=== PATIENT | male | born 1960 | race Caucasian/White ===

== ENCOUNTER 2023-12-09 12:02 | Outpatient (CLI) | payer MEDICARE, OTHER, SELFPAY ==
--- NOTE | ~2023-12-09 | XR_ITS ---
EXAMINATION: XR abdomen/kub 1V DATE: 12/09/2023 12:26 INDICATION: Calcium kidney stone TECHNIQUE: A supine view of the abdomen on 2 radiographs was obtained. COMPARISON: None. FINDINGS: 6 mm stone at the lower pole of the left kidney. No other evident urolithiasis although evaluation fo r tiny stones is limited and the right kidney by superimposed stool and gas in the colon. Iliac arter ies atherosclerotic calcifications in the pelvis. Mild lumbar levocurvature with moderate spondylosis . Multiple surgical clips in the deep pelvis which may relate to prior prostatectomy. Partially visua lized left total hip arthroplasty. IMPRESSION: 1. 6 mm stone at the lower pole the left kidney. Reviewed, dictated and finalized at location A.
== END 2023-12-09 12:03 | disposition home or self-care (01) ==
PROVIDERS: PCP Student in an Organized Health Care Education/Training Program; Visit Provider Urology
DX: N20.0 Calculus of kidney (principal)
CPT/HCPCS: 74018

== ENCOUNTER 2025-01-02 11:38 | Emergency (ER) | payer MEDICARE, OTHER, SELFPAY ==
--- NOTE | ~2025-01-02 | XR_ITS ---
XR abdomen/kub 1V Ordering provider: Beatriz Lyles PA-C History: . large prox L stone . Comparison: December 09, 2023 FINDINGS: BOWEL: Nonobstructive bowel gas pattern. ORGANOMEGALY: None. SIGNIFICANT PATHOLOGIC CALCIFICATIONS: A stone is seen in the left upper ureter measuring 1.8 cm. No other definite stones seen. OTHER: No free air is seen under the diaphragm. Left hip arthroplasty. IMPRESSION: NO ACUTE ABDOMINAL FINDINGS. Stone in the left upper ureter. Reviewed, dictated and finalized at location A.
--- NOTE | ~2025-01-02 | CT_ITS ---
Non-contrast CT scan of the Abdomen and Pelvis Clinical indication: Left flank pain Technique: 2.5 mm axial scans were obtained through the abdomen and pelvis without intravenous or or al contrast. Dose reduction technique was used on this scan by utilizing automated exposure control a nd iterative reconstruction technique. The dose-length product (DLP) was 1632.05 mGy-cm. Findings: Images through the lung bases reveal 1.5 cm noncalcified left basilar pulmonary nodule. There is a 13 mm ovoid stone at the proximal left ureter with moderate left hydroureteronephrosis to this level. Left renal cyst present. No right renal or right ureteral stone. No right hydronephrosis. The liver, spleen, pancreas, gallbladder, and adrenals appear normal. There are atherosclerotic calci fications of the aorta. . There is no evidence of bowel obstruction. Images through the pelvis were performed. There is no evidence of ascites or lymphadenopathy. Urinary bladder unremarkable. No pelvic mass evident. Impression: 13 mm proximal left ureteral stone with moderate left hydronephrosis. 1.5 cm noncalcified left basilar pulmonary nodule. Neoplasm is a consideration. Tissue sampling and/o r PET CT advised for further evaluation. Follow-up CT in 1-3 months would be a potential alternative consideration for follow-up. Reviewed, dictated and finalized at [facility]. Impression: 13 mm proximal left ureteral stone with moderate left hydronephrosis. 1.5 cm noncalcified left basilar pulmonary nodule. Neoplasm is a consideration. Tissue sampling and/or PET CT advised for further evaluation. Follow-up CT in 1-3 months would be a potential alternative consideration for follow-up.
[2025-01-02 11:48] VITALS: BP 153/86; PULSE 63; RESP 18; TEMP 36.4; O2SAT 97
--- NOTE | 2025-01-02 12:15 | ED_ITS ---
HPI - Male Genitourinary General Chief complaint: Urogenital-Male Stated complaint: 'I think I have a kidney stone Time Seen by Provider: 01/02/25 11:53 Source: patient Mode of arrival: ambulatory Limitations: no limitations History of Present Illness HPI Narrative: Patient is a 64 y/o male, with PMH of kidney stones, who presents to the ED with c/o L flank pain, radiating into his L abdomen. Patient reports pain began this morning. Does radiate into his groin. Feels similar to previous kidney stones. Has seen Dr. Samayoa in the past. Denies difficulty urinating, dysuria, hematuria. Does report slight decreased urination today. Reports nausea. Denies vomiting, fevers, diarrhea, constipation. Patient is 4 weeks out from right rotator cuff repair. Related Data Allergies Allergy/AdvReac Type Severity Reaction Status Date / Time Penicillins Allergy Intermediate Unknown Verified 01/02/25 11:51 Review of Systems 2 Review of Systems: All systems reviewed & are unremarkable except as noted in HPI. All systems reviewed & are unremarkable except as noted in HPI and below Exam 2 Narrative: GENERAL: Mildly uncomfortable appearing, morbidly obese with BMI of 40.3, non- toxic, in no acute distress. HEAD: Normocephalic, atraumatic. RESPIRATORY: Airway patent, respirations nonlabored. Clear to auscultation bilaterally, no rales, rhonchi, wheezing. CARDIOVASCULAR: Regular rate and rhythm without murmurs, rubs, or gallops. ABDOMINAL: Soft, no significant reproducible tenderness in left lower abdomen, nondistended. Normoactive BS. Mild CVA tenderness on left. MUSCULOSKELETAL: Moves all extremities. No gross deformities. SKIN: Warm, dry, normal color. NEURO: A&O X3. Speech clear. PSYCHIATRIC: Appropriate mood and affect. Normal interaction. Course Vital Signs Vital signs: Vital Signs Temperature 97.6 F 01/02/25 11:48 Pulse Rate 63 01/02/25 11:48 Respiratory Rate 18 01/02/25 11:48 Blood Pressure 153/86 H 01/02/25 11:48 Pulse Oximetry 97 01/02/25 11:48 Oxygen Delivery Room Air 01/02/25 11:48 Temperature 97.6 F 01/02/25 11:48 Pulse Rate 63 01/02/25 11:48 Respiratory Rate 18 01/02/25 11:48 Blood Pressure 153/86 H 01/02/25 11:48 Pulse Oximetry 97 01/02/25 11:48 Oxygen Delivery Room Air 01/02/25 11:48 MDM - Male Genitourinary MDM Narrative Medical decision making narrative: Patient presented to ED with left flank and abdominal pain that began this morning, history of kidney stones. Vital signs stable upon arrival. Patient in no acute distress, but mildly uncomfortable appearing. Cbc without leukocytosis or anemia. BMP with stable kidney function. UA with trace ketones, 21-50 RBC, no signs of infection. CT scan of abdomen/pelvis was obtained and showing 13 mm proximal left ureteral stone with moderate hydronephrosis. KUB ordered. CT also showing incidental pulmonary nodule that will require further imaging as an outpatient. Will make patient aware of this. Discussed lab and imaging findings with patient. On re-evaluation, he is feeling improved after dose of morphine. Pain is much more tolerable at this time. Discussed case with Dr. Dunn, urology, agrees with plan for outpatient follow-up, pain control, Flomax. They will contact patient to make follow-up appointment. Patient is in agreement this plan. Discussed very strict return precautions. Patient voiced understanding. Patient discharged in stable condition. Medical Records Attestation: I reviewed the patient's medical records. Lab Data Attestation: I reviewed the patient's lab results. 01/02/25 12:23 01/02/25 12:23 Labs: Lab Results 01/02/25 Range/Units 12:23 WBC 8.5 (4.5-10.0) K/mm3 RBC 5.07 (4.6-6.20) M/mm3 Hgb 15.9 (14.0-18.0) g/dL Hct 47.6 (42.0-52.0) % MCV 93.9 (80-100) fl MCH 31.4 (26-34) pg MCHC 33.4 (32-36) g/dl RDW 13.2 (11.5-14.5) % Plt Count 216 (150-375) k/mm3 MPV 9.5 (7.4-10.4) fl Immature Gran % (Auto) 0.5 (0-0.5) % Neut % (Auto) 71.1 (45.5-73.1) % Lymph % (Auto) 17.9 L (18.3-44.2) % Swisher % (Auto) 6.8 (2.6-8.5) % Eos % (Auto) 2.9 (0-4.4) % Baso % (Auto) 0.8 (0.2-1.2) % Lymph # (Auto) 1.52 (0.9-3.2) K/mm3 Swisher # (Auto) 0.6 (0.1-0.6) K/mm3 Eos # (Auto) 0.3 (0-0.3) K/mm3 Baso # (Auto) 0.1 (0.0-0.1) K/mm3 Abs Immat Gran (auto) 0.04 H (0.00-0.031) K/mm3 Absolute Neuts (auto) 6.0 (1.3-6.7) K/mm3 Absolute Nucleated RBC 0.000 (0.0-0.012) K/mm3 Nucleated RBC % 0.0 (0.0-0.2) % Sodium 139 (137-145) mmol/L Potassium 3.8 (3.4-5.0) mmol/L Chloride 105 (98-107) mmol/L Carbon Dioxide 25 (22-30) mmol/L Anion Gap 9 (4-12) mmol/L BUN 21 H (9-20) mg/dL Creatinine 1.01 (0.7-1.3) mg/dL Estim Creat Clear Calc 94 ml/min Estimated GFR > 60 (59 - ) Glucose 147 H (65-110) mg/dL Calcium 9.3 (8.4-10.2) mg/dL Urine Color Dark yellow (Yellow) Urine Appearance Cloudy H (Clear) Urine pH 5.0 (5.0-9.0) Ur Specific [place] 1.026 (1.001-1.035) Urine Protein 1+ H (Negative) mg/dL Urine Glucose (UA) Negative (Negative) mg/dL Urine Ketones Trace H (Negative) mg/dL Ur Blood (Man) 3+ H (Negative) Urine Nitrate Negative (Negative) Urine Bilirubin Negative (Negative) Urine Urobilinogen 1.0 (<2.0) mg/dL Leukocyte Esterase Rfl Trace H (Negative) KARINA/UL Urine RBC 21-50 H (0-2) /hpf Urine WBC 0-5 (0-3) /hpf Ur Squamous Epith Cells None seen (Few) /hpf Urine Bacteria None seen /hpf Urine Casts 0-2 Imaging Data Attestation: I personally reviewed and interpreted this imaging study as follows: Radiologist's impression: ITS Impressions Abdomen/Pelvis CT 01/02/25 13:20 Impression: 13 mm proximal left ureteral stone with moderate left hydronephrosis. 1.5 cm noncalcified left basilar pulmonary nodule. Neoplasm is a consideration. Tissue sampling and/or PET CT advised for further evaluation. Follow-up CT in 1- 3 months would be a potential alternative consideration for follow-up. Discharge Plan Discharge Clinical Impression: Calculus of proximal left ureter, Incidental pulmonary nodule Hydronephrosis Qualifiers: Hydronephrosis type: unspecified Qualified Code(s): N13.30 - Unspecified hydronephrosis Patient Disposition: Home Condition: Stable Instructions: Antibiotic Form, Kidney Stones (ED), Flank Pain (ED) Additional Instructions: Take Flomax daily as prescribed. Continue Tylenol as needed for pain. Avoid anti-inflammatories in case you need a urologic procedure (aleve, naproxen, ibuprofen, Advil, Motrin Mcleod). Utilize Oxycodone as needed for more severe pain. Zofran for nausea. Stay well hydrated. Call urology tomorrow to make an appointment if you do not hear from them today or tomorrow morning. Return to the ED if you experience worsening or severe pain, unable to keep down food/drink, fevers, uncontrollable nausea/vomiting, unable to urinate, or any other symptoms of concern. Your imaging did show evidence of an incidental left-sided pulmonary nodule. You will need to follow-up with your primary care doctor for further imaging of this in the next few months. Patient Language: Stateless Prescriptions: New ondansetron 4 mg tablet,disintegrating 4 mg PO Q8H PRN (Reason: nausea and vomiting) Qty: 15 0RF oxycodone 5 mg tablet 5 mg PO Q6H PRN (Reason: pain) Qty: 15 0RF tamsulosin [Flomax] 0.4 mg capsule 0.4 mg PO DAILY Qty: 7 0RF Follow-up/Referrals: Watson Dunn MD [Physician] - (UROLOGY) Reji,DO Tommy [Primary Care Provider] - Time of Disposition: 14:43
[2025-01-02 12:30] LABS: Basophils Absolute Auto 0.1 K/mm3 (0.0-0.1); Basophils Percent Auto 0.8 % (0.2-1.2); Eosinophils Absolute Auto 0.3 K/mm3 (0-0.3); Eosinophils Percent Auto 2.9 % (0-4.4); Hematocrit 47.6 % (42.0-52.0); Hemoglobin 15.9 g/dL (14.0-18.0); Immature Granulocyte Absolute 0.04 K/mm3 (0.00-0.031); Immature Granulocyte Percent A 0.5 % (0-0.5); Lymphocytes Absolute Auto 1.52 K/mm3 (0.9-3.2); Lymphocytes Percent Auto 17.9 % (18.3-44.2); Mean Corpuscular HGB Conc 33.4 g/dl (32-36); Mean Corpuscular Hemoglobin 31.4 pg (26-34); Mean Corpuscular Volume 93.9 fl (80-100); Mean Platelet Volume 9.5 fl (7.4-10.4); Monocytes Absolute Auto 0.6 K/mm3 (0.1-0.6); Monocytes Percent Auto 6.8 % (2.6-8.5); Neutrophils Percent Auto 71.1 % (45.5-73.1); Platelet Count Result 216 k/mm3 (150-375); Red Blood Count 5.07 M/mm3 (4.6-6.20); Red Cell Distribution Width 13.2 % (11.5-14.5); White Blood Count 8.5 K/mm3 (4.5-10.0)
[2025-01-02] MEDS: MORPHINE SULFATE (*CRX) 4 MG/ML INJ IV PUSH (12:38)
[2025-01-02] MEDS: ONDANSETRON INJ 4 MG/2 ML VIAL IV PUSH (12:38)
[2025-01-02 12:39] LABS: Add Urine Microscopic? YES; Appearance Urine Cloudy (Clear); Bacteria Urine None Seen /hpf; Bilirubin Urine Negative (Negative); Blood Urine 3+ (Negative); Color Urine Dark Yellow (Yellow); Glucose Urine UA Negative (Negative); Ketones Urine Trace mg/dL (Negative); Leukocyte Esterase Ur Trace LEU/UL (Negative); Nitrate Urine Negative (Negative); Non Pathogenic Casts 0-2; Protein Urine 1+ mg/dL (Negative); RBC Urine 21-50 /hpf (0-2); Specific Grav Ur 1.026 (1.001-1.035); Squamous Epithelial Cell Urine None Seen /hpf (Few); WBC Urine 0-5 /hpf (0-3)
[2025-01-02 12:40] LABS: Blood Urea Nitrogen 21 mg/dL (9-20); Calcium 9.3 mg/dL (8.4-10.2); Carbon Dioxide 25 mmol/L (22-30); Chloride 105 mmol/L (98-107); Estimated CRCL calculation 94 ml/min; Estimated Glomerular Filt Rate > 60; Glucose 147 mg/dL (65-110); Potassium 3.8 mmol/L (3.4-5.0)
--- OUTSIDE RECORDS SUMMARY | 2025-01-02 12:52 | XMS_ITS | Encounter Summary ---
Author Organization [facility] Address [address] [place] [address] Care Team Providers Care Online Advertising Director Name Role Phone Pcp, Unknown Primary Care Provider Unavailabl Gabbi Barbour MD Unavailable [phone] Tommy Mendoza DO Primary Care Provider + Encounter Details Date Type Department Care Team (Late st Contact Info) Description 11/12/2010 [facility] Outpatient Visit [facility]TER[facility] DEPT Amor Shaffer MD [address] [place] [phone] Social History Tobacco Use Types Packs/Day Years Used Date Smoking Tobacco: Former Cigarettes Q uit: 09/25/2008 Cigars Smokeless Tobacco: Never Alcohol Use Standard Drinks/Week Comments Yes 1.7 (1 standard drink = 0.6 oz p ure alcohol) rarely Sex and Gender Information Value Date Recorded Sex Assigned at Not on file Legal Sex Male 9:59 AM [employer] Gender Identity Not on file Sexual Orientation Not on file 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 on file Not on file documented as of this encounter Plan of Treatment Upcoming Encounters Date Type Department Care Team (Late Contact Info) Description 01/18/2025 9:45 AM CDT Office Visit [facility] [address] [facility], [address] [place] [phone] Shirley Wisdom PAWolf [address] [facility] [address] [place], [place] [id number] documented as of this encounter Visit Diagnoses Not on filedocumented in this encounter Care Teams Online Advertising Director Relationship Specialty Start Date End Date Pcp, Unknown [place] [address] PCP - General 07/05/09 Tommy Mendoza DO [address] [place] [phone] PCP - General 09/22/19 [place] [id number] [facility] [address] [place] [address] Orthopedic Surgery 07/05/14 documented as of this encounter
--- OUTSIDE RECORDS SUMMARY | 2025-01-02 12:52 | XMS_ITS | Clinical Summary ---
Author Organization [facility] Address [address] [facility] [place] [address] Care Team Providers Care Registered Dental Assistant Name Role Phone Gabbi Claudio MD Unavailable [phone] Tommy Mendoza DO Primary Care Provider + Source Comments [facility],non-owned Affiliates and Associated Physician Practices is amultiple site organization consisting of ambulatory clinics and hospital sitesin [place], [place], [place] and [place]. This disclosure is being madepursuant to the Care Everywhere program and may not contain all information available regarding this patient. Last updated 18.[facility] Allergies Active Allergy Reactions Criticality Noted Date Comments Penicillins 06/27/2014 Medications * This document contains information received from the source organization and may not represent a complete record from that organization. * Be aware that medications may not be up to date on this document. Alwaysverify current medications with the patient. infliximab (REMICADE) injection 600 (six hundred) mg by Intravenous route every 14 days Every 8 weeks Active valsartan-hydr ochlorothiazid e (DIOVAN HCT) 320-25 MG tablet Take 1 (one) tablet by mouth once daily Active amLODIPine (NORVASC) 10 MG tablet Take 0.5 (one-half) tablet by mouth once daily Active atenolol (TENORMIN) 25 MG tablet Take 2 (two) tablets by mouth once daily Active levocetirizine (XYZAL) 5 MG tablet 08/16/19 15 Active omeprazole (PRILOSEC) 40 MG capsule 08/16/19 15 Active carBAMazepine XR 12hr (TEGRETOL XR) 100 MG tablet Take 1 (one) tablet by mouth 2 times daily with morning and evening meal Active atorvastatin (LIPITOR) 10 MG tablet Take 1 (one) tablet by mouth at bedtime Active Multiple Vitamins-Psychologist Developmental als (MULTIVITAMIN ADULT, MINERALS, PO) Take 1 tablet by mouth once daily Active Cholecalcifero l 125 MCG (5000 UT) Take 1 (one) tablet by mouth once daily Active tamsulosin (Flomax) 0.4 MG capsule Take 1 (one) capsule by mouth once daily 07/04/20 24 Active amphetamine-de xtroamphetamin e XR 24hr (Adderall XR) 10 MG capsule Take 1 (one) capsule by mouth 11/16/19 24 Active baclofen (Lioresal) 10 MG tablet Take 1 (one) tablet by mouth 3 times daily as needed Active acetaminophen (Tylenol) 500 MG tablet Take 2 (two) tablets by mouth 3 times daily Maximum allowable Acetaminophen amount = 4 Grams (4000 mg) / 24 hours. 12/02/19 25 Active aspirin (Aspirin) 81 MG chew tablet Take 1 (one) tablet by mouth once daily 21 tablet 12/02/19 25 025 Discontin ued(List Clean-Up) oxyCODONE, immediate release, (Roxicodone) 10 MG tabletIndicati ons:S/P rotator cuff repair Take 1 (one) tablet by mouth every 6 hours as needed for Pain 28 tablet 12/02/19 25 025 Discontin ued(List Clean-Up) Active Problems Problem Noted Date Diagnosed Date Trigeminal neuralgia 01/23/2020 Hypertension 07/04/2009 Facial pain Agitated Overview (12/01/2024): reports that he wakes up easily and often quickly during procedures and has been told he requires more anesthesia than normal; Encounters Date Type Department Care Team Description 12/27/2024 10:00 AM CDT Office Visit [facility] Orthopedics [address] [facility], [address] [place] [phone] Gabbi Claudio MD Status post arthroscopy of right shoulder (Primary Dx) 12/07/2024 Telephone [facility] [address] [facility], [address] [place] [address] Gabbi Claudio MD Post Op Call 12/01/2024 10:05 AM CDT - 12/01/2024 12:05 PM CDT Surgery [facility] Surgery [address] [facility], [address] [place] [address] Gabbi Claudio MD RIGHT SHOULDER ARTHROSCOPY, DECOMPRESSION 12/01/2024 9:25 AM CDT Anesthesia Event [facility] [address] [facility], [address] [place] [address] Kimberley Tao DO Schneider, Alan R, MD 12/01/2024 6:57 AM CDT - 12/01/2024 11:59 PM CDT Hospital Encounter [facility] [address] [place] [address], [address] [place] [address] Gabbi Claudio MD Surgery General Discharge Disposition: Home or Self Care 12/01/2024 Travel 11/29/2024 8:50 AM CDT Office Visit [facility]oped[facility] [address] [facility], [address] [place] [address] Gabbi Claudio MD Chronic right shoulder pain (Primary Dx); Nontraumatic complete tear of right rotator cuff 11/24/2024 Travel 11/10/2024 Telephone [facility] [address] [place] [address] Ria Albert RN Pre-op Consult (Anesthesia Review of EKG) 11/08/2024 9:34 AM CDT - 11/08/2024 11:59 PM CDT Hospital Encounter [facility] [address] [place] [address] Gabbi Claudio MD Discharge Disposition: Home or Self Care 11/08/2024 Results Follow-Up [facility] [address] [place] [address] Kathy Jones, CHIEF NURSING EXECUTIVE-MEAL ATTENDANT 11/08/2024 Travel from Last 3 Months Family History Medical History Relation Name Comments Asthma Brother 3 Cancer Brother 4 Hypercholesterolemia Brother 5 Hypertension Brother 6 CAD (Coronary Artery Disease) Father Cancer Father Heart Failure Father Hypercholesterolemia Father Hypertension Father Stroke Father Heart Failure Maternal Grandfather Cancer Maternal Grandmother Hypertension Maternal Grandmother Arthritis - Osteo Mother Cancer Mother Hypercholesterolemia Mother Hypertension Mother Relation Name Status Comments Brother 1 Alive Brother 2 Alive Brother 3 Brother 4 Brother 5 Brother 6 Father Maternal Grandfather Maternal Grandmother Mother Alive Social History Tobacco Use Types Packs/Day Years Used Date Smoking Tobacco: Former Cigarettes Q uit: 09/25/2008 Cigars Smokeless Tobacco: Never Tobacco Cessation:Counseling Given: Not Answered Alcohol Use Standard Drinks/Week Comments Yes 1.7 (1 standard drink = 0.6 oz p ure alcohol) rarely AUDIT-C Answer Date Recorded Q1: How often do you have a drink containing alcohol? 2-4 times a month 12/01/2024 Q2: How many drinks containi ng alcohol do you have on a typical day when you are drinking? Patient does not drink Q3: How often do you have si x or more drinks on one occasion? 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 on file Not on file Last Filed Vital Signs Vital Sign Reading Time Taken Comments Blood Pressure 109/59 12/01/2024 12:10 PM CDT Pulse 54 12/01/2024 12:20 PM CDT Temperature 36.1 C (97 F) 12/01/2024 11:41 AM CDT Respiratory Rate 21 12/01/2024 12:20 PM CDT Oxygen Saturation 92% 12/01/2024 12:20 PM CDT Inhaled Oxygen Concentration - - Weight 142.4 kg (314 lb) 12/01/2024 8:27 AM CDT Height 185.4 cm (6' 1) 11/29/2024 8:54 AM CDT Body Mass Index 41.43 11/29/2024 8:54 AM CDT Plan of Treatment Upcoming Encounters Date Type Department Care Team (Late st Contact Info) Description 01/18/2025 9:45 AM CDT Office Visit [facility] Orth[facility] [address] [facility], [address] [place] [phone] Shirley Wisdom PA-C [address] [facility] [address] [place] [address] Health Maintenance Due Date Last Done Comments COLOGUARD (AGES 45-75) - COLON CA SCREENING 1959 CT COLONOGRAPHY - COLON CA SCREENING 1959 FIT - COLON CA SCREENING 1959 FLEX SIG - COLON CA SCREENING 1959 MEDICARE AWV 12 MONTHS 1959 HIV SCREENING 10/26/1974 DTAP/TDAP/TD VACCINES (1 - Tdap) 10/26/1978 PNEUMOCOCCAL VACCINE 50+ (1 of 1 - PCV) 10/26/2009 ZOSTER VACCINE (1 of 2) 10/26/2009 Respiratory Syncytial Virus (RSV) Vaccine Pt: or over 60 yrs (1 - Risk 60-74 years 1-dose series) 2019 COVID-19 VACCINE (2023- season) 2024 01/09/2023, 04/12/2022, 09/10/2021, Additional history exists SCREENING FOR DIABETES 11/12/2027 , 11/11/2024, 11/08/2024, Additional history exists COLON MONITORING 10/19/2033 10/20/2023 COLONOSCOPY - COLON CA SCREENING 10/19/2033 10/20/2023 Colorectal Cancer Screening 10/19/2033 HEPATITIS C SCREENING Completed 01/27/2020 INFLUENZA VACCINE Completed 05/04/2024, , 04/04/2021, Additional history exists DEPRESSION SCREENING Completed 08/15/2024, 06/28/20 24 AAA SCREENING Completed 11/17/2024 HEPATITIS B VACCINE Aged Out No longe r eligible based on patient's age to complete this topic HIB VACCINE Aged Out No longer eligi ble based on patient's age to complete this topic HPV VACCINE Aged Out No longer eligi ble based on patient's age to complete this topic MENINGOCOCCAL (Group B) VACCINE SHARED DECISION-MAKING Aged Out No longer eligible based on patient's age to complete this topic MENINGOCOCCAL GROUPS A/C/Y/W VACCINE Aged Out No longer eligible based on patient's age to complete this topic Medical Devices Implanted Type Area Button Bradder Device Identifier Shelf Expiration Date Model / Serial / Lot Swivel Lock Self Punching 4.75mm X 24.5 Mm Implanted:Qty: 1 on 07/10/2014 by Gabbi Claudio MD at [facility] Left: Shoulder [employer] 01/17/2016 [id number] / / [id number] Rixford Sut Sh 2.9mm X 12.5mm Implanted:Qty: 1 on 07/10/2014 by Gabbi Claudio MD at [facility] Left: Shoulder [employer] 04/18/2016 AR-[id number] / / [id number] Rixford Sut Sh 2.9mm X 12.5mm Implanted:Qty: 1 on 07/10/2014 by Gabbi Claudio MD at [facility] Left: Shoulder [employer] 04/18/2016 AR-[id number] / / [id number] Suture Rixford Implanted:Qty: 1 on 07/10/2014 by Gabbi Claudio MD at [facility] Left: Shoulder [employer] AR-2324BCM / / [id number] Rixford Sut Swivelock Sp 4.75mm Bcmps Implanted:Qty: 2 on 12/01/2024 by Gabbi Claudio MD at [facility] Right: Shoulder [employer] 07/19/2028 AR-[id number] P / / [id number] Rixford Slf Pnch Fibertak Marvin Mercer Implanted:Qty: 1 on 12/01/2024 by Gabbi Claudio MD at [facility] Right: Shoulder [employer] 01/16/2029 AR-[id number] / / [id number] Rixford Slf Pnch Fibertak Kl Dr Oleg Mercer Implanted:Qty: 1 on 12/01/2024 by Gabbi Claudio MD at [facility] Right: Shoulder [employer] 12/17/2028 AR-[id number] / / [id number] Explanted Type Area Button Bradder Device Identifier Shelf Expiration Date Model / Serial / Lot Swvllok Dbl Ld Biocomp 4.75mm Implanted:Qty: 1 Explanted:Qty: 1 on 07/10/2014 at [facility] Left: Shoulder [employer] 05/18/2016 AR-2324BCC -2 / / [id number] Rixford Sut Swivel Implanted:Qty: 1 Explanted:Qty: 1 on 07/10/2014 at [facility] Left: Shoulder [employer] 02/17/2016 AR-2323BCC / / [id number] Procedures Procedure Name Priority Date/Time Associated Diagnosis Comments IMAGING/RADIOLOGY/XR AY RESULTS ORDER 12/02/2024 5:05 PM CDT ENDOTRACHEAL TUBE NOTE Routine 12/01/2024 10:01 AM CDT PERIPHERAL BLOCK Routine 12/01/2024 9:23 AM CDT PERIPHERAL BLOCK Routine 12/01/2024 9:18 AM CDT AL SHOULDER ARTHROSCOPY 12/01/2024 9:09 AM CDT Tear of right rotator cuff, unspecified tear extent, unspecified whether traumatic Special Needs REGENETEN, CUFF SUAD Chirinos 11/21-pj ([phone])- Samantha 11/24migdalia ([phone])- MUST USE BORROWED GOLD ELITE AND SHAVER AL ARTHROSCOPY BICEPS TENODESIS 12/01/2024 9:09 AM CDT Tear of right rotator cuff, unspecified tear extent, unspecified whether traumatic Special Needs REGENETEN, CUFF SUAD Chirinos 11/21-pj ([phone])- Samantha 11/24migdalia ([phone])- MUST USE BORROWED GOLD ELITE AND SHAVER AL SCOPE SHLDR SURG;W/ROTOR CUFF 12/01/2024 9:09 AM CDT Tear of right rotator cuff, unspecified tear extent, unspecified whether traumatic Special Needs RYLEY MARQUEZ 11/21-pj ([phone])- Samantha 11/24-pj ([phone])- MUST USE BORROWED GOLD ELITE AND SHAVER AL SHOULDER ARTHROSCOPY 12/01/2024 9:09 AM CDT Tear of right rotator cuff, unspecified tear extent, unspecified whether traumatic Special Needs RYLEY MARQUEZ 11/21-pj ([phone])- Samantha 11/24-pj ([phone])- MUST USE BORROWED GOLD ELITE AND SHAVER EKG 12-LEAD Routine 11/08/2024 10:53 AM CDT Preop examination COMPREHENSIVE METABOLIC PANEL STAT 11/08/2024 10:27 AM CDT Preop examination from Last 3 Months Results * IMAGING/RADIOLOGY/XRAY RESULTS ORDER (12/02/2024 5:05 PM CDT) Anatomical Region Laterality Modality Other Narrative 12/02/2024 5:05 PM CDT Ordered by an unspecified provider. us Scanned Document IMAGING Final Result * ETT LINE PERFORMABLE (12/01/2024 10:01 AM CDT) Narrative Donya Martinez APRN-CRNA - 12/01/2024 10:01 AM CDT Donya Martinez APRN-CRNA 12/01/2024 10:02 AM Endotracheal Tube Placement: Patient Location: OR. Intubation Event Date/Time: 12/01/2024 9:33 AM Procedure: intubation (07191) Procedure Section: Sedation: under general anesthesia. Indications for Airway Management: anesthesia Induction: rapid sequence Patient Position: sniffing Mask Ventilation: difficult and required 2 people (2 handed). Blade Type: Video Blade Size: 4 Laryngoscopy View: grade 1 (full cords) Intubation Adjuncts: stylet Tube: endotracheal tube Placement: oral Tube type: cuff - inflated Tube Size (MM): 8 Depth of Insertion (CM): 21 Measured From: teeth Cuff volume (mL): 7 Cuff Inflated With: air Number of Attempts: 1. Placement Verified By: direct visualization, bilateral breath sounds and CO2 monitor Tube secured with: adhesive tape. Dentition unchanged? Yes Difficult Airway? Yes. Technique: video laryngoscope Reason: neck immobility, small mouth, obesity and other - please comment Procedure Start Time: 12/01/2024 9:33 AM. Procedure End Time: 12/01/2024 9:33 AM. Procedure Total Time: 0 minutes. Staff Section Anesthesia Provider: Donya Martinez APRN-SURFACE SHIP USW SUPERVISOR, Performed the procedure Kimberley Tao DO GENERAL ANESTHESIA ORDERABLES Final Result * Peripheral Nerve Block (12/01/2024 9:23 AM CDT) Narrative Kimberley Tao DO - 12/01/2024 9:23 AM CDT Kimberley Tao DO 12/01/2024 9:24 AM Peripheral Nerve Block Procedure: Peripheral Nerve Block Patient Location: Pre-op Preprocedure Section: Indications: at surgeon's request, at patient's request, postop pain management and surgical anesthesia. Pre-anesthetic Checklist: Patient identified, IV Checked, Site examined and clear, Risks and benefits discussed, Surgical consent verified, Monitors and equipment, Time-out performed, Informed consent obtained, Pre-op evaluation done, Questions answered/anesthesia questions answered, Allergies reviewed and Removal hand/wrist jewelry Monitors: EKG, Pulse Ox and BP. Patient Condition: sedated, meaningful contact maintained throughout procedure Patient Position: sitting Patient Sedated? Yes Sedation Type: mild Procedure Section Laterality: right Block Performed: Other- please comment (intercostobrachial) Prep: Chloraprep Strerile Field: hat/cap, mask and gloves Needle Type: Echogenic insulated Needle Gauge: 22 Needle Length: 50 mm Catheter? No Injection was made incrementally with constant monitoring and aspirations every 5 mL's Injection Assessment: Slow fractionated injection Block Agents or Additives used? Yes Block agents used: bupivacaine 0.5% - EPINEPHrine 1:200,000 (PF) injection - Infiltration 5 mL - 12/01/2024 9:08:00 AM Procedure Tolerance: tolerated well, performed while the patient was sedated and no immediate complications Staff Section Anesthesia Provider: Kimberley Tao DO, Performed the procedure Kimberley Tao DO GENERAL ANESTHESIA ORDERABLES Final Result * Peripheral Nerve Block (12/01/2024 9:18 AM CDT) Narrative Kimberley Tao DO - 12/01/2024 9:18 AM CDT Kimberley Tao DO 12/01/2024 9:24 AM Peripheral Nerve Block Procedure: Peripheral Nerve Block Patient Location: Pre-op Preprocedure Section: Indications: at surgeon's request, at patient's request, postop pain management and surgical anesthesia. Pre-anesthetic Checklist: Patient identified, IV Checked, Site examined and clear, Risks and benefits discussed, Surgical consent verified, Monitors and equipment, Time-out performed, Informed consent obtained, Pre-op evaluation done, Questions answered/anesthesia questions answered, Allergies reviewed and Removal hand/wrist jewelry Monitors: EKG, Pulse Ox and BP. Patient Condition: sedated, meaningful contact maintained throughout procedure Patient Position: sitting Patient Sedated? Yes Sedation Type: mild Procedure Section Laterality: right Block Performed: supraclavicular Prep: Chloraprep Strerile Field: mask, gloves and hat/cap Skin localized with: lidocaine (XYLOCAINE) 1 % injection - Infiltration 1 mL - 12/01/2024 9:05:00 AM Needle Type: Echogenic insulated Needle Gauge: 22 Needle Length: 50 mm Catheter? No Ultrasound Guided? Yes Technique: in plane Visualization: Preliminary scan performed, Important anatomical structures identified, Needle tip visualized throughout the procedure, Target identified, No intraneural or intravascular puncture occurred, Ultrasound image in chart, Local visualized surrounding nerve on ultrasound and Hydrodissection utilized Injection was made incrementally with constant monitoring and aspirations every 5 mL's Injection Assessment: Slow fractionated injection Block Agents or Additives used? Yes Block agents used: bupivacaine 0.5% - EPINEPHrine 1:200,000 (PF) injection - Perineural 20 mL - 12/01/2024 9:05:00 AM Procedure Tolerance: tolerated well, performed while the patient was sedated and no immediate complications Assessment: completed Staff Section Anesthesia Provider: Kimberley Tao DO, Performed the procedure Additional Comments: Given patient's obesity and DONNA, a hybrid block was performed between the interscalene and supraclavicular areas. Kimberley B Dhanak DO GENERAL ANESTHESIA ORDERABLES Edited Result - Final * EKG 12-LEAD (11/08/2024 10:53 AM CDT) Ventricular Rate 69 BPM [facility] Atrial Rate 69 BPM [facility] P-R Interval 228 ms [facility] QRS Duration ms 96 ms [facility] Q-T Interval ms 406 ms [facility] QTC Calculation (Bezet) 435 ms [facility] Calculated R [place] -11 degrees [facility] Calculated T [place] 39 degrees [facility] Interpretation EKG Sinus rhythm with 1st degree A-V block Otherwise normal ECG Confirmed by SAL VELARDE MD ([id number]) on 11/08/2024 8:16:26 PM [facility] 11/08/2024 10:5 3 AM CDT 11/08/2024 8:16 PM CDT Tracy Kerns DO ECG ORDERABLES Edited Result - Final [facility] * (ABNORMAL) COMPREHENSIVE METABOLIC PANEL (11/08/2024 10:27 AM CDT) Glucose 111(H) 70 - 99 mg/dL 11/08/2024 11:07 AM CDT [facility] Sodium 141 136 - 145 mmol/L 11/08/2024 11:07 AM CDT [facility] Potassium 3.8 3.5 - 5.1 mmol/L 11/08/2024 11:07 AM CDT [facility] Chloride 108(H) 98 - 107 mmol/L 11/08/2024 11:07 AM CDT [facility] CO2 26 22 - 29 mmol/L 11/08/2024 11:07 AM CDT [facility] Calcium 9.5 8.4 - 10.4 mg/dL 11/08/2024 11:07 AM CDT [facility] Anion Gap 7 6 - 16 mmol/L 11/08/2024 11:07 AM CDT [facility] BUN 22 7 - 26 mg/dL 11/08/2024 11:07 AM CDT [facility] Creatinine 0.85 0.72 - 1.25 mg/dL 11/08/2024 11:07 AM CDT [facility] Alkaline Phosphatase 87 40 - 150 U/L 11/08/2024 11:07 AM CDT [facility] ALT 47 6 - 57 U/L 11/08/2024 11:07 AM CDT [facility] AST 29 10 - 48 U/L 11/08/2024 11:07 AM CDT [facility] Protein Total 7.6 6.4 - 8.3 gm/dL 11/08/2024 11:07 AM CDT [facility] Albumin 3.9 3.4 - 5.0 gm/dL 11/08/2024 11:07 AM CDT [facility] Bilirubin Total 0.4 0.2 - 1.2 mg/dL 11/08/2024 11:07 AM CDT [facility] eGFR by CKD-EPI >90 >=90 mL/min/1.7 3 m2 11/08/2024 11:07 AM CDT [facility] Blood BLOOD SPECIMEN / Unknown Venipuncture / Unknown 11/08/2024 10:27 AM CDT 11/08/2024 10:43 AM CDT us Kathy Jones CHIEF NURSING EXECUTIVE-MEAL ATTENDANT LAB - CHEMISTRY ORDERABL ES Final Result [facility] [id number] [place] [id number] from Last 3 Months Insurance [facility] MEDICARE MEDICARE [facility] [place] [address] [place] [address] Care Teams Registered Dental Assistant Relationship Specialty Start Date End Date Tommy Mendoza DO [address] [place] [address] PCP - General 09/22/19 [place] [address] [place] [id number] Orthopedic Surgery 07/05/14
--- OUTSIDE RECORDS SUMMARY | 2025-01-02 12:52 | XMS_ITS | Encounter Summary ---
Author Organization [facility] Address [address] [facility] [place] [address] Care Team Providers Care Fish Bait Processing Supervisor Name Role Phone Pcp, Unknown Primary Care Provider Unavailabl Gabbi Barbour MD Unavailable [phone] Tommy Mendoza DO Primary Care Provider + Encounter Details Date Type Department Care Team (Late st Contact Info) Description 11/12/2010 [facility] Outpatient Visit EXTERNAL NON-[facility] DEPT Amor Shaffer MD [address] [place] [phone] Social History Tobacco Use Types Packs/Day Years Used Date Smoking Tobacco: Former Cigarettes Q uit: 09/25/2008 Cigars Smokeless Tobacco: Never Alcohol Use Standard Drinks/Week Comments Yes 1.7 (1 standard drink = 0.6 oz p ure alcohol) rarely Sex and Gender Information Value Date Recorded Sex Assigned at Not on file 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, [address] [place] [phone] Shirley Wisdom PAWolf [address] [facility] [address] [place], [place] [phone] documented as of this encounter Visit Diagnoses Not on filedocumented in this encounter Care Teams Fish Bait Processing Supervisor Relationship Specialty Start Date End Date Pcp, Unknown [place] [address] PCP - General 07/05/09 Tommy Mendoza DO [address] [place] [id number] PCP - General 09/22/19 [place] [address] [facility] [address] [place] [address] Orthopedic Surgery 07/05/14 documented as of this encounter
--- OUTSIDE RECORDS SUMMARY | 2025-01-02 12:52 | XMS_ITS | Encounter Summary ---
Author Organization [facility] Address [address] [place] [address] Care Team Providers Care Intelligence Operations Specialist Name Role Phone Gabbi Claudio MD Unavailable [phone] Tommy Mendoza DO Primary Care Provider + Encounter Details Date Type Department Care Team (Late st Contact Info) Description 11/08/2024 Results Follow-Up [facility] [address] [place] [address] Kathy Jones, GMAT TUTOR-BUILDING ESTIMATOR [address] [place] [address] Social History Tobacco Use Types Packs/Day Years Used Date Smoking Tobacco: Former Cigarettes Q uit: 09/25/2008 Cigars Smokeless Tobacco: Never Alcohol Use Standard Drinks/Week Comments Yes 1.7 (1 standard drink = 0.6 oz p ure alcohol) rarely PHQ-2 Answer Date Recorded Patient Health Questionnaire-2 Score 0 08/13/2024 Sex and Gender Information Value Date Recorded Sex Assigned at Not on file Legal Sex Male 9:59 AM ROOM SERVER Gender Identity Not on file Sexual Orientation Not on file 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 Answer Date of Assessment Author No 07/10/2014 1:58 PM ROOM SERVER Chantell Escobar RN * Is person blind or have serious difficulty seeing? Answer Date of Assessment Author No 07/10/2014 1:58 PM Chantell Bradford RN * Does person have serious difficulty walking/climbing stairs? Answer Date of Assessment Author No 07/10/2014 1:58 PM Chantell Bradford RN * Does person have difficulty dressing/bathing? Answer Date of Assessment Author No 07/10/2014 1:58 PM Chantell Bradford RN * Does person have difficulty doing errands alone? Answer Date of Assessment Author No 07/10/2014 1:58 PM Chantell Bradford RN documented as of this encounter Mental Status * Does person have difficulty concentrating/remembering/making decisions? Answer Entry Date Author No 07/10/2014 1:58 PM Chantell Bradford RN documented in this encounter Progress Notes * Vanessa Bolton RN - 11/08/2024 3:38 PM CDT Labs from [facility] visit faxed to PCP via [employer] per instructions. documented in this encounter Plan of Treatment Upcoming Encounters Date Type Department Care Team (Late st Contact Info) Description 01/18/2025 9:45 AM CDT Office Visit [facility] Orthopedics [address] [phone] Shirley Wisdom PAWolf [address] [address] documented as of this encounter Visit Diagnoses Not on filedocumented in this encounter Care Teams Intelligence Operations Specialist Relationship Specialty Start Date End Date Tmomy Mendoza DO [address] [place] [address] PCP - General 09/22/19 [place]bi [place]audio [place] [id number] [place] [address] [address] [place] [address] Orthopedic Surgery 07/05/14 documented as of this encounter
--- OUTSIDE RECORDS SUMMARY | 2025-01-02 12:52 | XMS_ITS | Referral Summary ---
Author Organization [facility] Address [facility] [place] [address] Care Team Providers Care Program Admin Name Role Phone Tommy Mendoza Primary Care Provide r Allergies Active Allergy Reactions Criticality Noted Date Comments Penicillin Other (See comments) Low 11/14/2022 Penicillins Swelling,Unknown Medium 06/27/2014 Medications amLODIPine (NORVASC) 5 mg tabletIndication s:hypertension Take 1 tablet (5 mg total) by mouth every morning 2 Active atenoloL (TENORMIN) 50 mg tabletIndication s:hypertension Take 1 tablet (50 mg total) by mouth every morning 2 Active atorvastatin (LIPITOR) 10 mg tabletIndication s:hyperlipidemia Take 1 tablet (10 mg total) by mouth nightly Active levocetirizine (XYZAL) 5 mg tabletIndication s:Allergic Rhinitis Take 1 tablet (5 mg total) by mouth every morning 5 Active omeprazole (PriLOSEC) 40 mg capsuleIndicatio ns:Stress Ulcer Prophylaxis,Dian tment of Non-Bleeding Gastric Disorder Take 1 capsule (40 mg total) by mouth every morning 2 Active tamsulosin (FLOMAX) 0.4 mg extended release capsuleIndicatio ns:benign prostatic hyperplasia with lower urinary tract sx Take 1 capsule (0.4 mg total) by mouth every morning 2 Active valsartan-hydroc hlorothiazide (DIOVAN-HCT) 320-25 mg per tabletIndication s:hypertension Take 1 tablet by mouth every morning 2 Active buPROPion XL (WELLBUTRIN XL) 150 mg 24 hr tabletIndication s:anxiety Take 1 tablet (150 mg total) by mouth every morning 2 Active cholecalciferol (Vitamin D3) 5,000 unit tabletIndication s:Vitamin D Deficiency Take 1 tablet (5,000 Units total) by mouth every morning Active carBAMazepine XR (TEGretol XR) 100 mg 12 hr tabletIndication s:Trigeminal Neuralgia Take 1 tablet (100 mg total) by mouth as needed Active ergocalciferol (VITAMIN D) 50,000 unit capsuleIndicatio ns:Vitamin D Deficiency TAKE 1 CAP 2 X A WEEK 16 capsule 3 Active oxyCODONE (ROXICODONE) 5 mg immediate release tabletIndication s:Pain Take 1 tablet (5 mg total) by mouth every 4 (four) hours as needed for pain 30 tablet 3 Active pregabalin (LYRICA) 75 mg capsule Take 1 capsule (75 mg total) by mouth 2 (two) times a day 28 capsule 3 Active inFLIXimab (REMICADE) 100 mg injectionIndicat ions:Ulcerative Colitis Infuse 60 mL (600 mg total) into a venous catheter every 8 (eight) weeks HOLD FOR AT LEAST 2 WEEK AFTER SURGERY OR UNTIL INCISION HAS COMPLETELY HEALED. 1 each 3 Active aspirin 81 mg enteric coated tabletIndication s:Deep Vein Thrombosis Prevention Take 1 tablet (81 mg total) by mouth 2 (two) times a day 60 tablet 3 Active senna-docusate (PERICOLACE) 8.6-50 mgIndications:co nstipation Take 2 tablets by mouth 2 (two) times a day 80 tablet 3 Active meloxicam (MOBIC) 15 mg tabletIndication s:Pain Take 1 tablet (15 mg total) by mouth daily 30 tablet 3 Active traMADoL (ULTRAM) 50 mg tabletIndication s:Postoperative pain Take 1 tablet (50 mg total) by mouth every 6 (six) hours as needed for pain 42 tablet 3 Active acetaminophen (Acetaminophen Extra Strength) 500 mg tablet 2 tablet EVERY 8 HOURS (route: oral) 3 Active econazole 1 % cream APPLY CREAM TOPICALLY TO RIGHT HAND AND FEET TWICE DAILY 3 Active ketoconazole (NIZORAL) 2 % cream APPLY TO RIGHT HAND AND FEET TWICE DAILY 3 Active terbinafine (LamiSIL) 250 mg tablet Take 1 tablet (250 mg total) by mouth daily 3 Active clindamycin (CLEOCIN) 300 mg capsuleIndicatio ns:Prophylaxis, Surgical TAKE 2 PILLS 1 HOUR BEFORE DENTAL APPOINTMENT. 6 capsule 3 Active ciprofloxacin (CIPRO) 500 mg tabletIndication s:Prophylactic antibiotic Take 2 tablets 1 hour to the dental appointment. 2 tablet 3 Active dextroamphetamin e-amphetamine XR (ADDERALL XR) 10 mg 24 hr capsule 4 Active Active Problems Problem Noted Date Diagnosed Date Arthritis of right knee 11/13/2022 Primary osteoarthritis of right knee 08/11/2022 Overview (08/11/2022): Added automatically from request for surgery [id number] Facial pain 12/19/2021 Urolithiasis 12/19/2021 Trigeminal neuralgia 01/23/2020 Arthritis 12/06/2018 GERD (gastroesophageal reflux disease) 9 Arthralgia of hip 06/09/2017 Surgical follow-up care 07/03/2016 History of surgical procedure 02/28/2016 Hyperlipidemia 10/10/2015 Sleep apnea 10/10/2015 Need for prophylactic antibiotic 06/26/2015 Osteoarthritis of hip 06/26/2015 Ulcerative colitis without complications 015 Overview (12/19/2021): Groin pain Lumbar radiculopathy 04/24/2015 Pain in wrist 02/21/2015 Hypertension, essential 07/04/2009 Social History Tobacco Use Types Packs/Day Years Used Date Smoking Tobacco: Former Cigarettes Q uit: 2008 Smokeless Tobacco: Never AUDIT-C Answer Date Recorded Q1: How often do you have a drink containing alc ohol? 2-4 times a month 11/13/2022 Average Number of Drinks Not on file 023 Frequency of Binge Drinking Not on file 10/19 Personal Safety Answer Date Recorded Have you ever been in or are you currently in a harmful physical or emotional relationship or is someone making you feel afraid or unsafe? 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 Gender Identity Not on file Sexual Orientation Not on file Last Filed Vital Signs Vital Sign Reading Time Taken Comments Blood Pressure 131/73 11/14/2022 8:15 AM CDT Pulse 58 11/14/2022 8:15 AM CDT Temperature 36.5 C (97.7 F) 11/14/2022 8:53 AM CDT Respiratory Rate 16 11/14/2022 8:53 AM CDT Oxygen Saturation 97% 11/14/2022 8:15 AM CDT Inhaled Oxygen Concentration - - Weight 135.3 kg (298 lb 3.2 oz) 023 11:52 AM CDT Height 188 cm (6' 2) 11/13/2022 11:52 AM CDT Body Mass Index 38.29 11/13/2022 11:52 AM CDT Plan of Treatment Not on file Medical Devices Implanted Type Area Director Global Market Research Device Identifier Shelf Expiration Date Model / Serial / Lot Hip Left: Hip [employer] Attune Fb Tib Base Sz 10 Por [id number] - [id number] Implanted:Qty: 1 on 11/13/2022 by Jero Johnson MD at [facility] Right: Knee [employer] [id number] 08/19/2032 [id number] / / [id number] [employer] Attune Cruciate Retain Cementless Knee Right 10 Component Femoral [id number] - [id number] Implanted:Qty: 1 on 11/13/2022 by Jero Johnson MD at [facility] Right: Knee [employer] [id number] 04/18/2032 [id number] / / [id number] [employer] Insert Tibial Knee Fixed Rm Posterior Stabilized Attune 5mm Size 10 Polyethylene [id number] - [id number] Implanted:Qty: 1 on 11/13/2022 by Jero Johnson MD at [facility] Right: Knee [employer] [id number] 09/16/2030 [id number] / / [id number] Insurance MEDICARE [facility] MEDICARE [employer] [facility] Advance Directives For more information, please contact: [phone] * Full Code (Latest Code Status on File) Date Activated Date Inactivated Comments 11/13/2022 4:56 PM 11/14/2022 3:24 PM Care Teams Program Admin Relationship Specialty Start Date End Date Tommy Mendoza DO [address] [place] [id number] PCP - General Family Medicine 12/19/21
--- OUTSIDE RECORDS SUMMARY | 2025-01-02 12:52 | XMS_ITS | Encounter Summary ---
Author Organization [facility] Address [address] [facility] [address] Care Team Providers Care Charge Hand Name Role Phone Pcp, Unknown Primary Care Provider Unavailabl Gabbi Barbour MD Unavailable [phone] Tommy Mendoza DO Primary Care Provider + Encounter Details Date Type Department Care Team (Late st Contact Info) Description 09/24/2010 [facility] Outpatient Visit EXTERNAL NON-[facility] DEPT Amor Shaffer MD [address] [place] [phone] Social History Tobacco Use Types Packs/Day Years Used Date Smoking Tobacco: Former Cigarettes Q uit: 09/25/2008 Cigars Smokeless Tobacco: Never Alcohol Use Standard Drinks/Week Comments Yes 1.7 (1 standard drink = 0.6 oz p ure alcohol) rarely Sex and Gender Information Value Date Recorded Sex Assigned at Not on file 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 Gender Identity Not on file Sexual Orientation Not on file 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 on file Not on file documented as of this encounter Plan of Treatment Upcoming Encounters Date Type Department Care Team (Late Contact Info) Description 01/18/2025 9:45 AM CDT Office Visit [facility] Health Orthopedics [address] [facility], [address] [place] [phone] Shirley Wisdom PAWolf [address] [facility] [address] [place], [place] [id number] documented as of this encounter Visit Diagnoses Not on filedocumented in this encounter Care Teams Charge Hand Relationship Specialty Start Date End Date Pcp, Unknown [place] [address] PCP - General 07/05/09 Tommy Mendoza DO [address] [place] [phone] PCP - General 09/22/19 [place] [address] [facility] [address] [place] [address] Orthopedic Surgery 07/05/14 documented as of this encounter
--- OUTSIDE RECORDS SUMMARY | 2025-01-02 12:52 | XMS_ITS | Encounter Summary ---
Author Organization [facility] Address [address] [facility] [place] [address] Care Team Providers Care Skilled Nursing Facilities Professional Name Role Phone Pcp, Unknown Primary Care Provider Unavailabl Gabbi Barbour MD Unavailable [phone] Tommy Mendoza DO Primary Care Provider + Encounter Details Date Type Department Care Team (Late st Contact Info) Description 10/17/2010 [facility] Outpatient Visit EXTERNAL NON-[facility] DEPT Amor Shaffer MD [address] [place] [phone] Social History Tobacco Use Types Packs/Day Years Used Date Smoking Tobacco: Former Cigarettes Q uit: 09/25/2008 Cigars Smokeless Tobacco: Never Alcohol Use Standard Drinks/Week Comments Yes 1.7 (1 standard drink = 0.6 oz p ure alcohol) rarely Sex and Gender Information Value Date Recorded Sex Assigned at Not on file 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 Gender Identity Not on file Sexual Orientation Not on file 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 on file Not on file documented as of this encounter Plan of Treatment Upcoming Encounters Date Type Department Care Team (Late Contact Info) Description 01/18/2025 9:45 AM CDT Office Visit [facility] Health Orthopedics [address] [facility], [address] [place] [phone] Shirley Wisdom PAWolf [phone] [facility] [address] [place], [place] [id number] documented as of this encounter Visit Diagnoses Not on filedocumented in this encounter Care Teams Skilled Nursing Facilities Professional Relationship Specialty Start Date End Date Pcp, Unknown [place] [address] PCP - General 07/05/09 Tommy Mendoza DO [address] [place] [address] PCP - General 09/22/19 [place] [id number] [facility] [address] [place] [address] Orthopedic Surgery 07/05/14 documented as of this encounter
--- OUTSIDE RECORDS SUMMARY | 2025-01-02 12:52 | XMS_ITS | Clinical Summary ---
Author Organization [facility] Address [facility] [place] [address] Care Team Providers Care Hand Edger Name Role Phone Tommy Mendoza Primary Care [...] (08/11/2022): Added automatically from request for surgery [id number] Facial pain 12/19/2021 Urolithiasis 12/19/2021 Trigeminal neuralgia 01/23/2020 Arthritis 12/06/2018 GERD (gastroesophageal reflux disease) 9 Arthralgia of hip 06/09/2017 Surgical follow-up care 07/03/2016 History of surgical procedure 02/28/2016 Hyperlipidemia 10/10/2015 Sleep apnea 10/10/2015 Need for prophylactic antibiotic 06/26/2015 Osteoarthritis of hip 06/26/2015 Ulcerative colitis without complications 015 Overview (12/19/2021): Groin pain Lumbar radiculopathy 04/24/2015 Pain in wrist 02/21/2015 Hypertension, essential 07/04/2009 Surgical History Surgery Date Site/Laterality Comments VERTEBROPLASTY SHOULDER ARTHROSCOPY Left HAND SURGERY 07/20/2015 - 07/19/2016 x2 TOTAL HIP ARTHROPLASTY 07/20/2015 - 07/19/2016 Left LITHOTRIPSY 07/20/2021 - 07/19/2022 Medical History Medical History Date Comments HTN (hypertension) HLD (hyperlipidemia) Sleep apnea GERD (gastroesophageal reflux disease) Skin cancer Ulcerative colitis (HCC) Family History Medical History Relation Name Comments Arthritis Brother 1 Family history of arthritis - (Added by TW Conv) Hypertension Brother 2 Family history of hypertension - (Added by TW Conv) Cancer Brother 3 Family history of malignant neoplasm - (Added by TW Conv) Arthritis Father Family history of arthritis - (Added by TW Conv) Cancer Father Family history of malignant neoplasm - (Added by TW Conv) Heart disease Father Family history of cardiac disorder - (Added by TW Conv) Hypertension Father Family history of hypertension - (Added by TW Conv) Lung disease Father Family history of lung disease - (Added by TW Conv) Stroke Father Family history of cerebrovascular accident (CVA) - (Added by TW Conv) Arthritis Mother Family history of arthritis - (Added by TW Conv) Cancer Mother Family history of malignant neoplasm - (Added by TW Conv) Heart disease Mother Family history of cardiac disorder - (Added by TW Conv) Hypertension Mother Family history of hypertension - (Added by TW Conv) Anesthesia problems Neg Hx Relation Name Status Comments Brother 1 Brother 2 Brother 3 Father Mother Social History Tobacco Use Types Packs/Day Years Used Date Smoking Tobacco: Former Cigarettes Q uit: 2007 Smokeless Tobacco: Never AUDIT-C Answer Date Recorded [...] on file 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 Gender Identity Not on file Sexual Orientation Not on file Obstetrics History Last Filed Vital Signs Vital Sign Reading [...] 11/13/2022 11:52 AM CDT Plan of Treatment Health Maintenance Due Date Last Done Comments Colon Cancer Screening-Colonoscopy 1959 Depression Screening 1960 Hepatitis C Screening 1960 Prostate Cancer Screening-PSA 1959 Hepatitis B Screening 10/26/1977 Fall Risk Assessment 11/15/2023 11/14/2022 Covid-19 Vaccine (2023-08 5 season) 2024 09/10/2021, 03/05/2021, 10/09/2020, Additional history exists Abdominal Aortic Aneurysm (A AA) Screen 10/26/2024 Well Visit 65+ 10/26/2024 Pneumococcal vaccine 65+ (3 of 3 - PPSV23, PCV20 or PCV21) 01/23/2025 01/24/2020, 08/31/2018 Influenza Vaccine (Season Ended) 2025 04/04/2021, 04/02/2020, 06/02/2019, Additional history exists DTaP/Tdap/Td Vaccine (3 - Td or Tdap) 05/11/2030 05/11/2020, 12/17/2010 Zoster Vaccine Completed 06/06/2020, 04/02/2020 Medical Devices Implanted Type Area Utility Assembler Device Identifier Shelf Expiration Date Model / Serial / Lot Hip Left: Hip [employer] Attune Fb Tib Base Sz 10 Por [id number] - [id number] Implanted:Qty: 1 on 11/13/2022 by Jero Johnson MD at [facility] Right: Knee [employer] [id number] 08/19/2032 [id number] / / [id number] [employer] Attune Cruciate Retain Cementless Knee Right 10 Component Femoral [id number] - [id number] Implanted:Qty: 1 on 11/13/2022 by Jero Johnson MD at [facility] Right: Knee [employer] [id number] 04/18/2032 [id number] / / [id number] [employer] Insert Tibial Knee Fixed Rm Posterior Stabilized Attune 5mm Size 10 Polyethylene [id number] - [id number] Implanted:Qty: 1 on 11/13/2022 by Jero Johnson MD at [facility] Right: Knee [employer] [id number] 09/16/2030 [id number] / / [id number] Insurance MEDICARE [facility] [place] [address] MEDICARE [facility] Advance Directives For more information, please contact: [phone] * Full Code (Latest Code Status on File) Date Activated Date Inactivated Comments 11/13/2022 4:56 PM 11/14/2022 3:24 PM Care Teams Hand Edger Relationship Specialty Start Date End Date Tommy Mendoza DO [address] [place] [id number] PCP - General Family Medicine 12/19/21
--- OUTSIDE RECORDS SUMMARY | 2025-01-02 12:53 | XMS_ITS | Clinical Summary ---
Author Organization [facility] Address [address] [place] [address] Phone Care Team Providers Care Cleaning Supervisor Name Role Phone Francisco Larson MD Unavailable [phone] Tommy Mendoza DO Primary Care Provider + Allergies Active Allergy Reactions Criticality Noted Date Comments Penicillins Unknown 05/31/2015 Medications naproxen sodium (ANAPROX) 220 MG Tablet Take 220 mg by mouth daily as needed. Active InFLIXimab (REMICADE IV) 600 mg by Intravenous route. Active omeprazole (PRILOSEC) 40 MG CAPSULE DELAYED RELEASE Take 1 Cap by mouth. 90 Cap 3 06/23/20 16 Active amLODIPine (NORVASC) 5 MG Tablet Take 1 Tab by mouth daily. 90 Tab 0 06/23/20 16 Active Mesalamine (APRISO) 0.375 GM CAPSULE SR 24 HR Take 4 Caps by mouth daily. 120 Cap 06/23/20 16 Active Misc. Devices MiscIndications:Sle ep apnea, unspecified type Supply and instructions:aries benjamin needs face mask, hoses and filter 1 Each 0 06/26/20 16 Active EPIPEN 2-LIT 0.3 MG/0.3ML Solution Auto-injector 08/13/19 17 Active valsartan-hydroCHLO ROthiazide (DIOVAN-HCT) 320-25 MG Tablet TAKE 1 TABLET DAILY 90 Tab 3 12/16/19 18 Active Levocetirizine Dihydrochloride 5 MG Tablet TAKE 1 TABLET DAILY 90 Tab 2 01/07/20 18 Active atenolol (TENORMIN) 50 MG Tablet TAKE 1 TABLET DAILY 90 Tab 3 03/10/20 18 Active FLULAVAL QUADRIVALENT Suspension 05/05/20 18 Active Active Problems Problem Noted Date Diagnosed Date GERD (gastroesophageal reflux disease) 9 Arthritis 12/06/2018 Hypertension, essential 10/10/2015 Hyperlipidemia 10/10/2015 Sleep apnea 10/10/2015 Ulcerative colitis without complications 015 Overview (06/26/2015): Groin pain Urolithiasis Resolved Problems Problem Noted Date Diagnosed Date Resolved Date H/O colonoscopy 03/10/2017 08/04/2017 Overview (03/10/2017): ; repeat in 2 years Wrist joint replacement status 08/04/2017 Overview (09/24/2016): Right-failed fusion Immunizations Immunization Administration Dates Next Due Hepatitis A Vaccine 10/21/1999,09/21/1998 Influenza Vaccine greater than 3 yrs 05/05/2018 Influenza Vaccine, Quadrivalent, PF 08/04/2017 Influenza, high-dose, trivalent, PF 05/24/2016 Pneumococcal Vaccine - 13 Valent 08/31/2018 TDAP Vaccine 12/17/2010 Family History Relation Name Status Comments Father Mother Social History Tobacco Use Types Packs/Day Years Used Date Smoking Tobacco: Former Cigarettes Smokeless Tobacco: Never Tobacco Cessation:Counseling Given: No Alcohol Use Standard Drinks/Week Comments Yes 0 (1 standard drink = 0.6 oz pur e alcohol) Sex and Gender Information Value Date Recorded Sex Assigned at Not on file Legal Sex Male 10:11 PM CDT Gender Identity Not on file Sexual Orientation Not on file Last Filed Vital Signs Vital Sign Reading Time Taken Comments Blood Pressure 118/62 12/06/2018 2:02 PM CDT Pulse 64 12/06/2018 2:02 PM CDT Temperature 36.9 C (98.5 F) 12/06/2018 2:02 PM CDT Respiratory Rate 20 12/06/2018 2:02 PM CDT Oxygen Saturation 95% 12/06/2018 2:02 PM CDT Inhaled Oxygen Concentration - - Weight 125.5 kg (276 lb 9.6 oz) 12/06/2018 2:02 PM CDT Height 188 cm (6' 2) 12/06/2018 2:02 PM CDT Body Mass Index 35.51 12/06/2018 2:02 PM CDT Plan of Treatment Health Maintenance Due Date Last Done Comments Hepatitis C Virus (HCV) Screening 1960 Cologuard 10/26/2004 Immunochemical Fecal Occult Blood 10/26/2004 Colonoscopy 02/10/2019 02/10/2017, 07/2014, 02/08/2015 Colorectal Cancer Screening 02/10/2019 SARS-COV-2 Immunization ( season) 2024 03/05/2021, 10/09/2020, 09/18/2020 Pneumococcal Immunization (50+ years) (3 of 3 - PCV20 or PCV21) 01/23/2025 01/24/2020, 08/31/2018 Influenza Immunization (Season Ended) 2025 04/04/2021, 04/02/2020, 06/02/2019, Additional history exists Td Immunization Every 10 Years (Adults With 1 Tdap) 05/11/2030 05/11/2020, 12/17/2010 Respiratory Syncytial Virus (RSV) Immunization (Adult) (1 - 1-dose 75+ series) 10/26/2034 PSA Discussion Discontinued 08/14/2017, 04/13/2015 Pneumococcal Immunization Combined Discontinued 01/24/2020, 08/31/2018 Zoster Immunization Completed 06/06/2020, 0 Hepatitis B Immunization Aged Out No longer eligible based on patient's age to complete this topic Human Papillomavirus (HPV) Immunization Aged Out No longer eligible based on patient's age to complete this topic Meningococcal Immunization (ACWY) Aged Out No longer eligible based on patient's age to complete this topic Rotavirus Immunization Aged Out No lo nger eligible based on patient's age to complete this topic Procedures Procedure Name Priority Date/Time Associated Diagnosis Comments PSA DIAGNOSTIC,TOTAL Routine 08/14/2017 2:16 PM SYSTEMS TRAINER Kidney stone Idiopathic hematuria, unspecified whether glomerular morphologic changes present HM COLONOSCOPY Routine 02/10/2017 from Last 3 Months or Most Recently Relevant to Health Maintenance Results * PSA DIAGNOSTIC,TOTAL (08/14/2017 2:16 PM SYSTEMS TRAINER) PSA, TOTAL (PROSTATIC SPECIFIC ANTIGEN) 0.53 0.00 - 4.00 ng/mL 08/14/2017 5:03 PM SYSTEMS TRAINER [facility] Blood specimen (specimen) Venipuncture / Unknown 08/14/2017 2:16 PM SYSTEMS TRAINER 08/14/2017 4:00 PM SYSTEMS TRAINER Narrative [facility] - 08/14/2017 5:03 PM SYSTEMS TRAINER PSA NOTE: The PSA value should be used in conjunction with information available from clinical evaluation and other diagnostic procedures. us Alondra Collazo NEURO UROLOGIST, EXTERIOR INTERIOR SPECIALIST CHEMISTRY ORDERABLES Kathy l Result [facility] [address] [place] [address] * COLONOSCOPY (02/10/2017) us Francisco Larson MD PROCEDURE/MINOR SURGICAL OR DERABLES Final Result from Last 3 Months or Most Recently Relevant to Health Maintenance Care Teams Cleaning Supervisor Relationship Specialty Start Date End Date Tommy Mendoza DO [facility] [place] [address] PCP - General Family Medicine 12/23/21 Francisco Larson MD [address] [address] Consulting Physician Gastroenterology 06/23/16
--- OUTSIDE RECORDS SUMMARY | 2025-01-02 12:53 | XMS_ITS | Encounter Summary ---
Author Organization [facility] Address [address] [facility] [place] [address] Care Team Providers Care Terminal Computer Operator Name Role Phone Pcp, Unknown Primary Care Provider Unavailabl Gabbi Barbour MD Unavailable [phone] Tommy Mendoza DO Primary Care Provider + Encounter Details Date Type Department Care Team (Late st Contact Info) Description 12/05/2010 [facility] Outpatient Visit [facility] Neurosciences [address] [facility] [address] [place] [address] Amor Shaffer MD [address] [place] [phone] Social History Tobacco Use Types Packs/Day Years Used Date Smoking Tobacco: Former Cigarettes Q uit: 09/25/2008 Cigars Smokeless Tobacco: Never Alcohol Use Standard Drinks/Week Comments Yes 1.7 (1 standard drink = 0.6 oz p ure alcohol) rarely Sex and Gender Information Value Date Recorded Sex Assigned at Not on file 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 Gender Identity Not on file Sexual Orientation Not on file 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 on file Not on file documented as of this encounter Plan of Treatment Upcoming Encounters Date Type Department Care Team (Late st Contact Info) Description 01/18/2025 9:45 AM CDT Office Visit [facility] Orthopedics [address] [facility], [address] [place] [address] Shirley Wisdom, PADionneC [address] [facility] [address] [place] [address] documented as of this encounter Visit Diagnoses Not on filedocumented in this encounter Care Teams Terminal Computer Operator Relationship Specialty Start Date End Date Pcp, [place] [address] PCP - General 07/05/09 Tommy Mendoza DO [address] [place] [address] PCP - General 09/22/19 [place] [address] [facility] [address] [place] [address] Orthopedic Surgery 07/05/14 documented as of this encounter
--- OUTSIDE RECORDS SUMMARY | 2025-01-02 12:53 | XMS_ITS | Encounter Summary ---
Author Organization [facility] Address [address] [facility] [place] [address] Care Team Providers Care Bleach Supervisor Name Role Phone Gabbi Claudio MD Unavailable [phone] Tommy Mendoza DO Primary Care Provider + Encounter Details Date Type Department Care Team (Late st Contact Info) Description 11/27/2014 Therapy Visit 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 Answer Date of Assessment Author No 07/10/2014 1:58 PM Chantell Bradford RN * Is person blind or have [...] Chantell Bradford RN documented in this encounter Plan of Treatment Upcoming Encounters Date Type Department Care Team (Late st Contact Info) Description 01/18/2025 9:45 AM CDT Office Visit [facility] Orthopedics [address] [phone] Shirley Wisdom PA-C [address] [address] documented as of this encounter Visit Diagnoses Not on filedocumented in this encounter Care Teams Bleach Supervisor Relationship Specialty Start Date End Date Tommy Mendoza DO [address] [place] [address] PCP - General 09/22/19 [place] [id number] [place] [address] Orthopedic Surgery 07/05/14 documented as of this encounter
--- OUTSIDE RECORDS SUMMARY | 2025-01-02 12:53 | XMS_ITS | Encounter Summary ---
Author Organization [facility] Address [address] [facility] [place] [address] Care Team Providers Care Industrial Spray Painter Name Role Phone Pcp, Unknown Primary Care Provider Unavailabl Gabbi Barbour MD Unavailable [phone] Tommy Mendoza DO Primary Care Provider + Encounter Details Date Type Department Care Team (Late st Contact Info) Description 12/30/2010 [facility] Outpatient Visit EXTERNAL NON[facility] DEPT Amor Shaffer MD [address] [place] [address] Social History Tobacco Use Types Packs/Day Years Used Date Smoking Tobacco: Former Cigarettes Q uit: 09/25/2008 Cigars Smokeless Tobacco: Never Alcohol Use Standard Drinks/Week Comments Yes 1.7 (1 standard drink = 0.6 oz p ure alcohol) rarely Sex and Gender Information Value Date Recorded Sex Assigned at Not on file Legal Sex Male 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 Gender Identity Not on file Sexual Orientation Not on file 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 on file Not on file documented as of this encounter Plan of Treatment Upcoming Encounters Date Type Department Care Team (Late Contact Info) Description 01/18/2025 9:45 AM CDT Office Visit [facility] Health Orthopedics [address] [facility], [address] [place] [phone] Shirley Wisdom PAWolf [address] [facility] [address] [place], [place] [phone] documented as of this encounter Visit Diagnoses Not on filedocumented in this encounter Care Teams Industrial Spray Painter Relationship Specialty Start Date End Date Pcp, [place] [address] PCP - General 07/05/09 Tommy Mendoza DO [address] [place] [address] PCP - General 09/22/19 [place] [address] [facility] [address] [place] [address] Orthopedic Surgery 07/05/14 documented as of this encounter
--- OUTSIDE RECORDS SUMMARY | 2025-01-02 12:53 | XMS_ITS | Encounter Summary ---
Author Organization [facility] Address [address] [facility] [place] [address] Care Team Providers Care Welfare Worker Name Role Phone Gabbi Claudio MD Unavailable [phone] Tommy Mendoza DO Primary Care Provider + Encounter Details Date Type Department Care Team (Late st Contact Info) Description 06/22/2024 Lab Requisition [facility] DermPath Lab [address] [facility], [place] [address] Mariluz Chinchilla MD [address] [facility] 3 [place] [address] Social History Tobacco Use Types Packs/Day Years Used Date Smoking Tobacco: Former Cigarettes Q uit: 09/25/2008 Cigars Smokeless Tobacco: Never Alcohol Use Standard Drinks/Week Comments Yes 1.7 (1 standard drink = 0.6 oz p ure alcohol) rarely Sex and Gender Information Value Date Recorded Sex Assigned at Not on file 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 Answer Date of Assessment Author No 07/10/2014 1:58 PM TIRE SERVICE SUPERVISOR Chantell Escobar RN * Does person have difficulty dressing/bathing? [...] AM CDT Office Visit [facility] Orthopedics [address] [phone] Shirley Wisdom PA-C [address] [address] documented as of this encounter Procedures Procedure Name Priority Date/Time Associated Diagnosis Comments DERMATOPATHOLOGY Routine 06/22/2024 11:1 2 AM TIRE SERVICE SUPERVISOR documented in this encounter Results * DERMATOPATHOLOGY (06/22/2024 11:12 AM TIRE SERVICE SUPERVISOR) Case Report Dermatopathology Report Case: [id number] Authorizing Provider: Mariluz Chinchilla MD Collected: 06/22/2024 11:12 AM Ordering Location: [facility] - Received: 06/22/2024 04:21 PM DermPath Lab Pathologist: Jessica Nolen MD Specimen: Skin, left voodoo 4 4:02 PM TIRE SERVICE SUPERVISOR DERMATOPATHOLOGY LABORATORY Final Diagnosis Specimen A. SKIN, left voodoo: SEBORRHEIC KERATOSIS, INFLAMED (L82.0) 4 4:02 PM TIRE SERVICE SUPERVISOR DERMATOPATHOLOGY LABORATORY at 1602 TIRE SERVICE SUPERVISOR Clinical History SK, R/O SCC, crusted papule 4 4:02 PM [facility] DERMATOPATHOLOGY LABORATORY Gross Description Specimen A: Received is one formalin filled container labeled with the patient's name and designated left voodoo. The specimen consists of a shave biopsy (2 pieces) measuring [id number] and 6x4x1 mm. Jar 0. 4:02 PM [facility] DERMATOPATHOLOGY LABORATORY Microscopic Description Specimen A. SKIN, left voodoo: There is hyperkeratosis, parakeratosis, papillomatosis, and acanthosis of the epidermis. There is a lymphohistiocytic infiltrate within the papillary dermis that is focally lichenoid. There is abundant melanin within melanophages around the superficial vascular plexus. 4:02 PM [facility] DERMATOPATHOLOGY LABORATORY Disclaimer An external and internal positive and negative controls are appropriate for the histochemical, immunohistochemical and immunofluorescence stain(s) in this case (if any), except where stated explicitly. The performance characteristics of the stain(s) cited in this report were developed and its performance characteristic determined by the Dermatopathology Laboratory at [facility], directed by Dr. Marika Meza. These tests need not be, and therefore are not, approved by the [place] Food and Drug Administration. The tests are used for clinical purposes. Billing Codes Specimen Charges Stain Charges 37962 1 4:02 PM [facility] DERMATOPATHOLOGY LABORATORY Embedded Images 4 4:02 PM [facility] DERMATOPATHOLOGY LABORATORY Pathology/Cytolo gy TISSUE SPECIMEN FROM SKIN / Unknown 06/22/2024 11:12 AM TIRE SERVICE SUPERVISOR 06/22/2024 4:21 PM [facility] us Mariluz Chinchilla MD LAB - PATHOLOGY/CYTOLOGY ORD ERABLES Final Result DERMATOPATHOLOGY LABORATORY [facility] - Department of Dermatology [facility] Medicine [address] [place] [address], 3rd Floor [place], [place] [address] [place] [address] documented in this encounter Visit Diagnoses Not on filedocumented in this encounter Care Teams Welfare Worker Relationship Specialty Start Date End Date Tommy Mendoza DO [address] [place] [address] PCP - General 09/22/19 [place] [address] [place] [address] Orthopedic Surgery 07/05/14 documented as of this encounter
--- OUTSIDE RECORDS SUMMARY | 2025-01-02 12:53 | XMS_ITS | Encounter Summary ---
Author Organization [facility] Address [address] [facility] [place] [address] Care Team Providers Care Balloon Dipper Name Role Phone Gabbi Claudio MD Unavailable [phone] Tommy Mendoza DO Primary Care Provider + Encounter Details Date Type Department Care Team (Late st Contact Info) Description 11/26/2023 Lab Requisition [facility] Lab [address] [facility], [place] [address] Mariluz Chinchilla MD [address] [facility] 3 [place] [address] Social History Tobacco Use Types Packs/Day Years Used Date Smoking Tobacco: Former Cigarettes Q uit: 09/25/2008 Cigars Smokeless Tobacco: Never Alcohol Use Standard Drinks/Week Comments Yes 1.7 (1 standard drink = 0.6 oz p ure alcohol) rarely Sex and Gender Information Value Date Recorded Sex Assigned at Not on file 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 Gender Identity Not on file Sexual Orientation [...] Description 01/18/2025 9:45 AM CDT Office Visit [facility] Orthopedics [address] [phone] Shirley Wisdom PA-C [address] [address] documented as of this encounter Procedures Procedure Name Priority Date/Time Associated Diagnosis Comments DERMATOPATHOLOGY Routine 11/26/2023 1:45 PM CDT documented in this encounter Results * DERMATOPATHOLOGY (11/26/2023 1:45 PM CDT) Case Report Dermatopathology Report Case: [id number] Authorizing Provider: Mariluz Chinchilla MD Collected: 11/26/2023 01:45 PM Ordering Location: [facility] - Received: 11/30/2023 06:44 AM DermPath Lab Pathologist: Cadence Meza MD Specimen: Skin, left forearm 1:36 PM CDT DERMATOPATHOLOGY LABORATORY Final Diagnosis Specimen A. SKIN, left forearm: BENIGN VERRUCOUS KERATOSIS, INFLAMED (L82.1) 1:36 PM CDT DERMATOPATHOLOGY LABORATORY at 1336 CDT Clinical History R/o SCC 1:36 PM CDT DERMATOPATHOLOGY LABORATORY Gross Description Specimen A: Received is one formalin filled container labeled with the patient's name and designated left forearm. The specimen consists of a shave biopsy measuring 8x7x2 mm. Jar 0. 1:36 PM CDT DERMATOPATHOLOGY LABORATORY Microscopic Description Specimen A. SKIN, left forearm: Sections show hyperkeratosis, papillomatosis, hypergranulosis, and acanthosis. Inflammatory cells are present within the dermis. These histological findings can be seen in a verruca vulgaris or a seborrheic keratosis. 1:36 PM CDT DERMATOPATHOLOGY LABORATORY Disclaimer An external and internal positive and negative controls are appropriate for the histochemical, immunohistochemical and immunofluorescence stain(s) in this case (if any), except where stated explicitly. The performance characteristics of the stain(s) cited in this report were developed and its performance characteristic determined by the Dermatopathology Laboratory at [facility], directed by Dr. Marika Meza. These tests need not be, and therefore are not, approved by the [place] Food and Drug Administration. The tests are used for clinical purposes. Billing Codes Specimen Charges Stain Charges 37651 1 1:36 PM CDT DERMATOPATHOLOGY LABORATORY Embedded Images 1:36 PM CDT DERMATOPATHOLOGY LABORATORY Pathology/Cytolo gy TISSUE SPECIMEN FROM SKIN / Unknown 11/26/2023 1:45 PM CDT 11/30/2023 6:44 AM CDT us Mariluz Chinchilla MD LAB - PATHOLOGY/CYTOLOGY ORD ERABLES Final Result DERMATOPATHOLOGY LABORATORY [facility] - Department of Dermatology [address], [address] [phone] documented in this encounter Visit Diagnoses Not on filedocumented in this encounter Care Teams Balloon Dipper Relationship Specialty Start Date End Date Tommy Mendoza DO [address] [place] [address] PCP - General 09/22/19 [place] [address] [place] [id number] Orthopedic Surgery 07/05/14 documented as of this encounter
--- OUTSIDE RECORDS SUMMARY | 2025-01-02 12:53 | XMS_ITS | Encounter Summary ---
Author Organization [facility] Address [address] [facility] [place] [address] Care Team Providers Care Importer Exporter Name Role Phone Gabbi Claudio MD Unavailable [phone] Tommy Mendoza DO Primary Care Provider + Encounter Details Date Type Department Care Team (Late st Contact Info) Description 01/03/2015 Therapy Visit [facility] Orthopedics [address] [facility] [address] [place] [address] [place] [address] [address] Social History Tobacco Use Types Packs/Day Years Used Date Smoking Tobacco: Former Cigarettes Q uit: 09/25/2008 Cigars Smokeless Tobacco: Never Alcohol Use Standard Drinks/Week Comments Yes 1.7 (1 standard drink = 0.6 oz p ure alcohol) rarely Sex and Gender Information Value Date Recorded Sex Assigned at Not on file 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
--- OUTSIDE RECORDS SUMMARY | 2025-01-02 12:53 | XMS_ITS | Encounter Summary ---
Author Organization [facility] Address [address] [place] [address] Care Team Providers Care State Wildlife Officer Name Role Phone Gabbi Claudio MD Unavailable [phone] Tommy Mendoza DO Primary Care Provider + Encounter Details Date Type Department Care Team (Late st Contact Info) Description 10/30/2014 Therapy Visit [facility] Orthopedics [address] [facility] [address] [place] [address] [place] [address] [address] Social History Tobacco Use Types Packs/Day Years Used Date Smoking Tobacco: Former Cigarettes Q uit: 09/25/2008 Cigars Smokeless Tobacco: Never Alcohol Use Standard Drinks/Week Comments Yes 1.7 (1 standard drink = 0.6 oz p ure alcohol) rarely Sex and Gender Information Value Date Recorded Sex Assigned at Not on file 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
[2025-01-02] MEDS: SODIUM CHLORIDE 0.9% IV 1,000 ML 999 ML IV CONT (13:12)
[2025-01-02 13:13] LABS: Anion Gap 9 mmol/L (4-12); Sodium 139 mmol/L (137-145)
== END 2025-01-02 14:50 | disposition home or self-care (01) ==
PROVIDERS: Emergency Medicine; Emergency Provider Physician Assistant; PCP Student in an Organized Health Care Education/Training Program
DX: N13.2 Hydronephrosis with renal and ureteral calculous obstruction (principal); R91.1 Solitary pulmonary nodule; Z87.442 Personal history of urinary calculi
CPT/HCPCS: 36415; 74018; 74176; 80048; 81001; 85025; 96361; 96374; 96375; 99284; J2270; J2405; J7030

== ENCOUNTER 2025-01-06 00:25 | Day surgery (SDC) | payer MEDICARE, OTHER, SELFPAY ==
--- NOTE | 2025-01-04 11:46 | PC.NURSE ---
Report to the Outpatient Waiting Room, entrance under the green pavilion located off [facility], at time _12:30pm on date __01/06/25 . Planned Procedure Time: _2:30pm .? Time changes happen often and if your time is changed the preop area will call you the afternoon before. - You and your visitor will be asked to self-screen and do not enter if you have any COVID symptoms. Please call surgeon if you need to reschedule. - A mask is optional within the hospital at this time. Patients may have clear liquids (water, carbonated beverages, clear teas, apple juice) until 3 hours prior to surgery with a maximum of 20 ounces. - No food from midnight until time of surgery and no smoking, or chewing tobacco (or any form of nicotine). No chewing gum, candy or mints. (11:30am) Take only the following medications with a SIP of water on the morning of surgery: _Amlodipine and Atenolol, Oxycodone and Zofran if needed DO NOT STOP ANY OF YOUR OTHER PRESCRIPTION MEDICATIONS PRIOR TO SURGERY EXCEPT THE FOLLOWING Hold all vitamins and supplements for 3 days per anesthesiologist. Medications to discontinue per physician None Date to take last dose____None Please no make-up, nail yakut, hairspray, perfume, deodorant, or body powder the day of surgery.? No jewelry (including any body piercings) or valuables the day of surgery, leave them at home.? Please take a shower or bath the night before, or the morning of, surgery with an antibacterial soap.? Wear comfortable, loose fitting clothing.? - Jewelry must be removed prior to entering the operating room.? Rings and piercings that are not removed may be cut off. - The hospital will not accept responsibility for valuables.? - Please leave all valuables, including medications, at home the day of surgery. If you are going home after surgery, a licensed crew truck driver must drive you home.? - NO public transportation without another adult if you receive anesthesia. - We recommend that an adult stay with you for 24 hours following discharge. - We also recommend that you do not drive, make important decision, drink alcoholic beverages, or take any drugs that were not prescribed by your health care provider for at least 24 hours after your discharge time. Follow any additional instructions given to you from your surgeon. Telephone instructions given to ___Patient & Licha and asked if any additional questions and then verbalized understanding. Patient advised to call surgeon office or pre surgery nurse liaison [phone] if any additional questions.
[2025-01-05 08:09] VITALS: BMI 39.6
--- NOTE | ~2025-01-06 | XR_ITS ---
INTRAOPERATIVE FLUOROSCOPY: CLINICAL HISTORY: 64 years old Male; LEFT RETRO/STENT SPECIAL PROCEDURE COMMENTS: Limited intraoperative fluoroscopy of the retroperitoneum was performed. CUMULATIVE DOSE: 10.2 mGy FLUOROSCOPY TIME: 13 seconds FINDINGS/IMPRESSION: Please refer to operative note for further details. Reviewed, dictated and finalized at location A.
--- OUTSIDE RECORDS SUMMARY | 2025-01-06 00:28 | XMS_ITS | Encounter Summary ---
Author Organization [facility] Address [address] [facility] [place] [address] Care Team Providers Care Cargo Supervisor Name Role Phone Gabbi Claudio MD Unavailable [phone] Tommy Mendoza DO Primary Care Provider + Encounter Details Date Type Department Care Team (Late st Contact Info) Description 01/03/2015 Therapy Visit [facility] Orthopedics [address] [facility] [address] [place] [address] [place] [address] [address] Social History Tobacco Use Types Packs/Day Years Used Date Smoking Tobacco: Former Cigarettes Q uit: 09/25/2008 Cigars Smokeless Tobacco: Never Alcohol Use Standard Drinks/Week Comments Yes 1.7 (1 standard drink = 0.6 oz p ure alcohol) rarely Sex and Gender Information Value Date Recorded Sex Assigned at Not on file 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
--- OUTSIDE RECORDS SUMMARY | 2025-01-06 00:28 | XMS_ITS | Encounter Summary ---
Author Organization [facility] Address [address] [facility] [place] [address] Care Team Providers Care Editorial Manager Name Role Phone Pcp, Unknown Primary Care Provider Unavailabl Gabbi Barbour MD Unavailable [phone] Tommy Mendoza DO Primary Care Provider + Encounter Details Date Type Department Care Team (Late st Contact Info) Description 12/05/2010 [facility] Outpatient Visit [facility] Neurosciences [address] [facility] [address] [place] [address] Amor Shaffer MD [address] [place] [phone] Social History Tobacco Use Types Packs/Day Years Used Date Smoking Tobacco: Former Cigarettes Q uit: 09/25/2008 Cigars Smokeless Tobacco: Never Alcohol Use Standard Drinks/Week Comments Yes 1.7 (1 standard drink = 0.6 oz p ure alcohol) rarely Sex and Gender Information Value Date Recorded Sex Assigned at Not on file Legal Sex Male 9:59 AM CHOCOLATE FINISHER Gender Identity Not on file Sexual Orientation Not on file 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 on file Not on file documented as of this encounter Plan of Treatment Upcoming Encounters Date Type Department Care Team (Late st Contact Info) Description 01/18/2025 9:45 AM CDT Office Visit [facility] Orthopedics [address] [facility], [address] [place] [address] Shirley Wisdom, PADionneC [address] [facility] [address] [place] [address] documented as of this encounter Visit Diagnoses Not on filedocumented in this encounter Care Teams Editorial Manager Relationship Specialty Start Date End Date Pcp, Unknown [place] [address] PCP - General 07/05/09 Tommy Mendoza DO [address] [place] [address] PCP - General 09/22/19 [place] [address] [facility] [address] [place] [address] Orthopedic Surgery 07/05/14 documented as of this encounter
--- OUTSIDE RECORDS SUMMARY | 2025-01-06 00:28 | XMS_ITS | Encounter Summary ---
Author Organization [facility] Address [address] [place] [address] Care Team Providers Care Twitchell Operator Name Role Phone Pcp, Unknown Primary Care Provider Unavailabl Gabbi Barbour MD Unavailable [phone] Tommy Mendoza DO Primary Care Provider + Encounter Details Date Type Department Care Team (Late st Contact Info) Description 11/12/2010 [facility] Outpatient Visit EXTERNAL NON-[facility] DEPT Amor Shaffer MD [address] [place] [phone] Social History Tobacco Use Types Packs/Day Years Used Date Smoking Tobacco: Former Cigarettes Q uit: 09/25/2008 Cigars Smokeless Tobacco: Never Alcohol Use Standard Drinks/Week Comments Yes 1.7 (1 standard drink = 0.6 oz p ure alcohol) rarely Sex and Gender Information Value Date Recorded Sex Assigned at Not on file Legal Sex Male 9:59 AM PHARMACIST PER DIEM Gender Identity Not on file Sexual Orientation Not on file 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 on file Not on file documented as of this encounter Plan of Treatment Upcoming Encounters Date Type Department Care Team (Late Contact Info) Description 01/18/2025 9:45 AM CDT Office Visit [facility] Health Orthopedics [address] [facility], [address] [place] [phone] Shirley Wisdom PAWolf [address] [facility] [address] [place], [place] [phone] documented as of this encounter Visit Diagnoses Not on filedocumented in this encounter Care Teams Twitchell Operator Relationship Specialty Start Date End Date Pcp, Unknown [place] [address] PCP - General 07/05/09 Tommy Mendoza DO [address] [place] [address] PCP - General 09/22/19 [place] [address] [facility] [address] [place] [address] Orthopedic Surgery 07/05/14 documented as of this encounter
--- OUTSIDE RECORDS SUMMARY | 2025-01-06 00:28 | XMS_ITS | Encounter Summary ---
Author Organization [facility] Address [address] [facility] [place] [address] Care Team Providers Care Radial Router Operator Name Role Phone Pcp, Unknown Primary Care Provider Unavailabl Gabbi Barbour MD Unavailable [phone] Tommy Mendoza DO Primary Care Provider + Encounter Details Date Type Department Care Team (Late st Contact Info) Description 11/12/2010 [facility] Outpatient Visit EXTERNAL NON-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 Health Orthopedics [address] [facility], [address] [place] [phone] Shirley Wisdom PAWolf [address] [facility] [address] [place], [place] [phone] documented as of this encounter Visit Diagnoses Not on filedocumented in this encounter Care Teams Radial Router Operator Relationship Specialty Start Date End Date Pcp, Unknown No [place] [address] PCP - General 07/05/09 Tommy Mendoza DO [address] [place] [address] PCP - General 09/22/19 [place] [address] [facility] [address] [place] [address] Orthopedic Surgery 07/05/14 documented as of this encounter
--- OUTSIDE RECORDS SUMMARY | 2025-01-06 00:28 | XMS_ITS | Encounter Summary ---
Author Organization [facility] Address [address] [facility] [place] [address] Care Team Providers Care Physical Sciences Professor Name Role Phone Gabbi Claudio MD Unavailable [phone] Tommy Mendoza DO Primary Care Provider + Encounter Details Date Type Department Care Team (Late st Contact Info) Description 11/27/2014 Therapy Visit [facility] Orthopedics [address] [facility] [address] [place] [address] [place] [address] [address] Social History Tobacco Use Types Packs/Day Years Used Date Smoking Tobacco: Former Cigarettes Q uit: 09/25/2008 Cigars Smokeless Tobacco: Never Alcohol Use Standard Drinks/Week Comments Yes 1.7 (1 standard drink = 0.6 oz p ure alcohol) rarely Sex and Gender Information Value Date Recorded Sex Assigned at Not on file 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 Gender Identity Not on file Sexual Orientation [...] Description 01/18/2025 9:45 AM CDT Office Visit [facility] Orthopedics [address] [phone] Shirley Wisdom PA-C [address] [address] documented as of this encounter Visit Diagnoses Not on filedocumented in this encounter Care Teams Physical Sciences Professor Relationship Specialty Start Date End Date Tommy Mendoza DO [address] [place] [address] PCP - General 09/22/19 [place]bi [place]audio [place] [id number] [place] [address] Orthopedic Surgery 07/05/14 documented as of this encounter
--- OUTSIDE RECORDS SUMMARY | 2025-01-06 00:28 | XMS_ITS | Encounter Summary ---
Author Organization [facility] Address [address] [facility] [place] [address] Care Team Providers Care Audiovisual Production Specialist Name Role Phone Pcp, Unknown Primary Care Provider Unavailabl Gabbi Barbour MD Unavailable [phone] Tommy Mendoza DO Primary Care Provider + Encounter Details Date Type Department Care Team (Late st Contact Info) Description 12/30/2010 [facility] Outpatient Visit EXTERNAL NON-[facility] DEPT Amor Shaffer MD [address] [place] [phone] Social History Tobacco Use Types Packs/Day Years Used Date Smoking Tobacco: Former Cigarettes Q uit: 09/25/2008 Cigars Smokeless Tobacco: Never Alcohol Use Standard Drinks/Week Comments Yes 1.7 (1 standard drink = 0.6 oz p ure alcohol) rarely Sex and Gender Information Value Date Recorded Sex Assigned at Not on file Legal Sex Male 9:59 AM RN ONCOLOGY CLINICAL Gender Identity Not on file Sexual Orientation Not on file 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 on file Not on file documented as of this encounter Plan of Treatment Upcoming Encounters Date Type Department Care Team (Late Contact Info) Description 01/18/2025 9:45 AM CDT Office Visit [facility] Health Orthopedics [address] [facility], [address] [place] [phone] Shirley Wisdom PAWolf [address] [facility] [address] [place], [place] [phone] documented as of this encounter Visit Diagnoses Not on filedocumented in this encounter Care Teams Audiovisual Production Specialist Relationship Specialty Start Date End Date Pcp, [place] [address] PCP - General 07/05/09 Tommy Mendoza DO [address] [place] [address] PCP - General 09/22/19 [place] [address] [facility] [address] [place] [address] Orthopedic Surgery 07/05/14 documented as of this encounter
--- OUTSIDE RECORDS SUMMARY | 2025-01-06 00:28 | XMS_ITS | Encounter Summary ---
Author Organization [facility] Address [address] [place] [address] Care Team Providers Care Oil Rig Roughneck Name Role Phone Gabbi Claudio MD Unavailable [phone] Tommy Mendoza DO Primary Care Provider + Encounter Details Date Type Department Care Team (Late st Contact Info) Description 11/08/2024 Results Follow-Up [facility] Pretesting Center [address] [address] [place] [address] Kathy Jones, AUTOMOBILE RADIATOR MECHANIC-3D ANIMATOR [address] [place] [address] Social History Tobacco Use Types [...] on file Legal Sex Male 9:59 AM TRANSLATOR/INTERPRETER Gender Identity Not on file Sexual Orientation Not on file 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 Answer Date of Assessment Author No 07/10/2014 1:58 PM TRANSLATOR/INTERPRETER Chantell Escobar RN * Is person blind [...] from SEC visit faxed to PCP via [employer] per instructions. documented in this encounter Plan of Treatment Upcoming Encounters Date Type Department Care Team (Late st Contact Info) Description 01/18/2025 9:45 AM CDT Office Visit [facility] Orthopedics [address] [phone] Shirley Wisdom PAWolf [address] [address] documented as of this encounter Visit Diagnoses Not on filedocumented in this encounter Care Teams Oil Rig Roughneck Relationship Specialty Start Date End Date Tommy Mendoza DO [address] [place] [address] PCP - General 09/22/19 Gabbi [place]audio [place] [phone] [place] [address] [address] [place] [address] Orthopedic Surgery 07/05/14 documented as of this encounter
--- OUTSIDE RECORDS SUMMARY | 2025-01-06 00:28 | XMS_ITS | Encounter Summary ---
Author Organization [facility] Address [address] [facility] [place] [address] Care Team Providers Care Anesthesiologist Assistant Certified Name Role Phone Gabbi Claudio MD Unavailable [phone] Tommy Mendoza DO Primary Care Provider + Encounter Details Date Type Department Care Team (Late st Contact Info) Description 06/22/2024 Lab Requisition [facility] - DermPath Lab [address] [facility], [place] [address] Mariluz Chinchilla MD [address] [facility] [address] [place] [address] Social History Tobacco Use Types Packs/Day Years Used Date Smoking Tobacco: Former Cigarettes Q uit: 09/25/2008 Cigars Smokeless Tobacco: Never Alcohol Use Standard Drinks/Week Comments Yes 1.7 (1 standard drink = 0.6 oz p ure alcohol) rarely Sex and Gender Information Value Date Recorded Sex Assigned at Not on file Legal Sex Male 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 Answer Date of Assessment Author No 07/10/2014 1:58 PM METAPHYSICS TEACHER Chantell Escobar RN * Does person have [...] Description 01/18/2025 9:45 AM CDT Office Visit [facility] Orthopedics [address] [phone] Shirley Wisdom PA-C [address] [address] documented as of this encounter Procedures Procedure Name Priority Date/Time Associated Diagnosis Comments DERMATOPATHOLOGY Routine 06/22/2024 11:1 2 AM METAPHYSICS TEACHER documented in this encounter Results * DERMATOPATHOLOGY (06/22/2024 11:12 AM METAPHYSICS TEACHER) Case Report Dermatopathology Report Case: [id number] Authorizing Provider: Mariluz Chinchilla MD Collected: 06/22/2024 11:12 AM Ordering Location: [facility] - Received: 06/22/2024 04:21 PM DermPath Lab Pathologist: Jessica Nolen MD Specimen: Skin, left holiness 4 4:02 PM METAPHYSICS TEACHER DERMATOPATHOLOGY LABORATORY Final Diagnosis Specimen A. SKIN, left holiness: SEBORRHEIC KERATOSIS, INFLAMED (L82.0) 4 4:02 PM METAPHYSICS TEACHER DERMATOPATHOLOGY LABORATORY at 1602 METAPHYSICS TEACHER Clinical History SK, R/O SCC, crusted papule 4 4:02 PM [facility] DERMATOPATHOLOGY LABORATORY Gross Description Specimen A: Received is one formalin filled container labeled with the patient's name and designated left holiness. The specimen consists of a shave biopsy (2 pieces) measuring 63f14h6 and 6x4x1 mm. Jar 0. 4:02 PM [facility] DERMATOPATHOLOGY LABORATORY Microscopic Description Specimen A. SKIN, left holiness: There is hyperkeratosis, parakeratosis, papillomatosis, and acanthosis of the epidermis. There is a lymphohistiocytic infiltrate within the papillary dermis that is focally lichenoid. There is abundant melanin within melanophages around the superficial vascular plexus. 4:02 PM [facility] DERMATOPATHOLOGY LABORATORY Disclaimer An external and internal positive and negative controls are appropriate for the histochemical, immunohistochemical and immunofluorescence stain(s) in this case (if any), except where stated explicitly. The performance characteristics of the stain(s) cited in this report were developed and its performance characteristic determined by the Dermatopathology Laboratory at [facility], directed by Dr. Marika Meza. These tests need not be, and therefore are not, approved by the [place] Food and Drug Administration. The tests are used for clinical purposes. Billing Codes Specimen Charges Stain Charges 58057 1 4:02 PM [facility] DERMATOPATHOLOGY LABORATORY Embedded Images 4 4:02 PM [facility] DERMATOPATHOLOGY LABORATORY Pathology/Cytolo gy TISSUE SPECIMEN FROM SKIN / Unknown 06/22/2024 11:12 AM METAPHYSICS TEACHER 06/22/2024 4:21 PM [facility] us Mariluz Chinchilla MD LAB - PATHOLOGY/CYTOLOGY ORD ERABLES Final Result DERMATOPATHOLOGY LABORATORY [facility] - Department of Dermatology [facility] [address] [place] [address], 3rd [address] [place], [place] [phone] [place] [address] documented in this encounter Visit Diagnoses Not on filedocumented in this encounter Care Teams Anesthesiologist Assistant Certified Relationship Specialty Start Date End Date Tommy Mendoza DO [address] [place] [address] PCP - General 09/22/19 [place] [address] [place] [address] Orthopedic Surgery 07/05/14 documented as of this encounter
--- OUTSIDE RECORDS SUMMARY | 2025-01-06 00:28 | XMS_ITS | Clinical Summary ---
Author Organization [facility] Address [address] [place] [address] Phone Care Team Providers Care Cake Winder Name Role Phone Francisco Larson MD Unavailable [phone] Tommy Mendoza DO Primary Care Provider + [...] Comments PSA DIAGNOSTIC,TOTAL Routine 08/14/2017 2:16 PM HEAD OF TALENT MANAGEMENT Kidney stone Idiopathic hematuria, unspecified whether glomerular morphologic changes present HM COLONOSCOPY Routine 02/10/2017 from Last 3 Months or Most Recently Relevant to Health Maintenance Results * PSA DIAGNOSTIC,TOTAL (08/14/2017 2:16 PM HEAD OF TALENT MANAGEMENT) PSA, TOTAL (PROSTATIC SPECIFIC ANTIGEN) 0.53 0.00 - 4.00 ng/mL 08/14/2017 5:03 PM HEAD OF TALENT MANAGEMENT [facility] Blood specimen (specimen) Venipuncture / Unknown 08/14/2017 2:16 PM HEAD OF TALENT MANAGEMENT 08/14/2017 4:00 PM HEAD OF TALENT MANAGEMENT Narrative [facility] - 08/14/2017 5:03 PM HEAD OF TALENT MANAGEMENT PSA NOTE: The PSA value should be used in conjunction with information available from clinical evaluation and other diagnostic procedures. us Alondra Collazo RIPSAWYER, BOWL TURNER CHEMISTRY ORDERABLES Kathy l Result [facility] [place] [address] * COLONOSCOPY (02/10/2017) us Francisco Larson MD PROCEDURE/MINOR SURGICAL OR DERABLES Final Result from Last 3 Months or Most Recently Relevant to Health Maintenance Care Teams Cake Winder Relationship Specialty Start Date End Date Tommy Mendoza DO [facility] [address] [place] [address] PCP - General Family Medicine 12/23/21 Francisco Larson MD [address] [address] Consulting Physician Gastroenterology 06/23/16
--- OUTSIDE RECORDS SUMMARY | 2025-01-06 00:28 | XMS_ITS | Clinical Summary ---
Author Organization [facility] Address [facility] [place] [address] Care Team Providers Care Aqua Ammonia Operator Name Role Phone Tommy Mendoza Primary Care [...] (08/11/2022): Added automatically from request for surgery [id number] Facial pain 12/19/2021 Urolithiasis 12/19/2021 Trigeminal neuralgia [...] on file Legal Sex Male 3:19 PM ECMO SPECIALIST Gender Identity Not on file Sexual [...] 06/06/2020, 04/02/2020 Medical Devices Implanted Type Area Supervisor Stage Carpentry Device Identifier Shelf Expiration Date Model / Serial / Lot Hip Left: Hip [employer] Attune Fb Tib Base Sz 10 Por [id number] - [id number] Implanted:Qty: 1 on 11/13/2022 by Jero Johnson MD at [facility] Right: Knee [employer] [id number] 08/19/2032 [id number] / / [id number] [employer] Attune Cruciate Retain Cementless Knee Right 10 Component Femoral [id number] - [id number] Implanted:Qty: 1 on 11/13/2022 by Jero Johnson MD at [facility] Right: Knee [employer] [id number] 04/18/2032 [id number] / / [id number] [employer] Insert Tibial Knee Fixed Rm Posterior Stabilized Attune 5mm Size 10 Polyethylene [id number] - [id number] Implanted:Qty: 1 on 11/13/2022 by Jero Johnson MD at [facility] Right: Knee [employer] [id number] 09/16/2030 [id number] / / [id number] Insurance MEDICARE [facility] [place] [address] MEDICARE [facility] Advance Directives For more information, please contact: [phone] * Full Code (Latest Code Status on File) Date Activated Date Inactivated Comments 11/13/2022 4:56 PM 11/14/2022 3:24 PM Care Teams Aqua Ammonia Operator Relationship Specialty Start Date End Date Tommy Mendoza DO [address] [place] [address] PCP - General Family Medicine 12/19/21
--- OUTSIDE RECORDS SUMMARY | 2025-01-06 00:28 | XMS_ITS | Encounter Summary ---
Author Organization [facility] Address [address] [place] [place] [address] Care Team Providers Care Program Attendant Name Role Phone Gabbi Claudio MD Unavailable [phone] Tommy Mendoza DO Primary Care Provider + Encounter Details Date Type Department Care Team (Late st Contact Info) Description 10/30/2014 Therapy Visit [facility] Orthopedics [address] [facility] [address] [place] [address] [place] [address] [address] Social History Tobacco Use Types Packs/Day Years Used Date Smoking Tobacco: Former Cigarettes Q uit: 09/25/2008 Cigars Smokeless Tobacco: Never Alcohol Use Standard Drinks/Week Comments Yes 1.7 (1 standard drink = 0.6 oz p ure alcohol) rarely Sex and Gender Information Value Date Recorded Sex Assigned at Not on file 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
--- OUTSIDE RECORDS SUMMARY | 2025-01-06 00:28 | XMS_ITS | Clinical Summary ---
Author Organization [facility] Address [address] [facility] [place] [address] Care Team Providers Care Ticket Dispenser Changer Name Role Phone Gabbi Claudio MD Unavailable [phone] Tommy Mendoza DO Primary Care Provider + Source Comments [facility],non-owned Affiliates and Associated Physician Practices is amultiple site organization consisting of ambulatory clinics and hospital sitesin [place], [place], [place] and [place]. This disclosure is being madepursuant to the Care Everywhere program and may not contain all information available regarding this patient. Last updated 18.[facility] Allergies Active Allergy Reactions Criticality Noted Date [...] tablet by mouth at bedtime Active Multiple Vitamins-Hospice Aide als (MULTIVITAMIN ADULT, MINERALS, PO) Take 1 [...] Description 12/27/2024 10:00 AM CDT Office Visit [facility] Orthopedics [address] [facility], [address] [place] [address] Gabbi Claudio MD Status post arthroscopy of right shoulder (Primary Dx) 12/07/2024 Telephone [facility] Orth[facility]ics [address] [facility], [address] [place] [address] Gabbi Claudio MD Post Op Call 12/01/2024 10:05 AM CDT - 12/01/2024 12:05 PM CDT Surgery [facility] Surgery [address] [facility], [address] [place] [address] Gabbi Claudio MD RIGHT SHOULDER ARTHROSCOPY, DECOMPRESSION 12/01/2024 9:25 AM CDT Anesthesia Event [facility] [address] [facility], [address] [place] [address] Kimberley Tao DO Schneider, Alan R, MD 12/01/2024 6:57 AM CDT - 12/01/2024 11:59 PM CDT Hospital Encounter [facility] [address] [place] [address], [address] [place] [address] Gabbi Claudio MD Surgery General Discharge Disposition: Home or Self Care 12/01/2024 Travel 11/29/2024 8:50 AM CDT Office Visit [facility] Orthopedics [address] [facility], [address] [place] [address] Gabbi Claudio MD Chronic right shoulder pain (Primary Dx); Nontraumatic complete tear of right rotator cuff 11/24/2024 Travel 11/10/2024 Telephone [facility] [address] [place] [address] Ria Albert RN Pre-op Consult (Anesthesia Review of EKG) 11/08/2024 9:34 AM CDT - 11/08/2024 11:59 PM CDT Hospital Encounter [facility] [address] [place] [address] Gabbi Claudio MD Discharge Disposition: Home or Self Care 11/08/2024 Results Follow-Up [facility] [address] [place] [address] Kathy Jones, [employer] MANAGER-ORGANISATIONAL PSYCHOLOGIST 11/08/2024 Travel from Last 3 Months Family [...] on file 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 Orthopedics [address] [facility], [address] [place] [address] Shirley Wisdom PA-C [address] [facility] [address] [place] [address] Health Maintenance Due Date Last Done Comments [...] this topic Medical Devices Implanted Type Area Access Registrar Device Identifier Shelf Expiration Date Model / Serial / Lot Swivel Lock Self Punching 4.75mm X 24.5 Mm Implanted:Qty: 1 on 07/10/2014 by Gabbi Claudio MD at [facility] Left: Shoulder Ar[employer]rex Inc 01/17/2016 [id number] / / [id number] Nisula Sut Sh 2.9mm X 12.5mm Implanted:Qty: 1 on 07/10/2014 by Gabbi Claudio MD at [facility] Left: Shoulder [employer] Inc 04/18/2016 AR-[id number] / / [id number] Nisula Sut Sh 2.9mm X 12.5mm Implanted:Qty: 1 on 07/10/2014 by Gabbi Claudio MD at [facility] Left: Shoulder [employer] Inc 04/18/2016 AR-[id number] / / [id number] Suture Nisula Implanted:Qty: 1 on 07/10/2014 by Gabbi Claudio MD at [facility] Left: Shoulder [employer] Inc AR-2324BCM / / [id number] Nisula Sut Swivelock Sp 4.75mm Bcmps Implanted:Qty: 2 on 12/01/2024 by Gabbi Claudio MD at [facility] Right: Shoulder [employer] Inc 07/19/2028 AR-2324KBCS P / / [id number] Nisula Slf Pnch Fibertak Marvin Mercer Implanted:Qty: 1 on 12/01/2024 by Gabbi Claudio MD at [facility] Right: Shoulder [employer] Inc 01/16/2029 AR-3653SP / / [id number] Nisula Slf Pnch Fibertak Kl Dr Oleg Mercer Implanted:Qty: 1 on 12/01/2024 by Gabbi Claudio MD at [facility] Right: Shoulder [employer] Inc 12/17/2028 AR-[id number] / / [id number] Explanted Type Area Access Registrar Device Identifier Shelf Expiration Date Model / Serial / Lot Swvllok Dbl Ld Biocomp 4.75mm Implanted:Qty: 1 Explanted:Qty: 1 on 07/10/2014 at [facility] Left: Shoulder [employer] Inc 05/18/2016 AR-2324BCC -2 / / [id number] Nisula Sut Swivel Implanted:Qty: 1 Explanted:Qty: 1 on 07/10/2014 at [facility] Left: Shoulder [employer] Inc 02/17/2016 AR-2323BCC / / [id number] Procedures Procedure Name Priority Date/Time Associated Diagnosis Comments IMAGING/RADIOLOGY/XR AY RESULTS ORDER 12/02/2024 5:05 PM CDT ENDOTRACHEAL TUBE NOTE Routine 12/01/2024 10:01 AM CDT PERIPHERAL BLOCK Routine 12/01/2024 9:23 AM CDT PERIPHERAL BLOCK Routine 12/01/2024 9:18 AM CDT ID SHOULDER ARTHROSCOPY 12/01/2024 9:09 AM CDT Tear of right rotator cuff, unspecified tear extent, unspecified whether traumatic Special Needs REGENETEN, CUFF SUAD Chirinos 11/21-pj ([phone])- Samantha 11/24migdalia ([phone])- MUST USE BORROWED GOLD ELITE AND SHAVER ID ARTHROSCOPY BICEPS TENODESIS 12/01/2024 9:09 AM CDT Tear of right rotator cuff, unspecified tear extent, unspecified whether traumatic Special Needs REGENETEN, CUFF SUAD Chirinos 11/21-pj ([phone])- Samantha 11/24migdalia ([phone])- MUST USE BORROWED GOLD ELITE AND SHAVER ID SCOPE SHLDR SURG;W/ROTOR CUFF 12/01/2024 9:09 AM CDT Tear of right rotator cuff, unspecified tear extent, unspecified whether traumatic Special Needs RYLEY MARQUEZ 11/21-pj ([phone])- Samantha 11/24-pj ([phone])- MUST USE BORROWED GOLD ELITE AND SHAVER ID SHOULDER ARTHROSCOPY 12/01/2024 9:09 AM CDT Tear of right rotator cuff, unspecified tear extent, unspecified whether traumatic Special Needs RYLEY MARQUEZ 11/21-pj ([phone])- Samantha 11/24-pj ([phone])- MUST USE BORROWED GOLD ELITE AND SHAVER [...] Event Date/Time: 12/01/2024 9:33 AM Procedure: intubation (29083) Procedure Section: Sedation: under general anesthesia. Indications [...] minutes. Staff Section Anesthesia Provider: Donya Martinez APRN-STRIPPING AND BOOKING MACHINE OPERATOR, Performed the procedure Kimberley Tao DO GENERAL [...] (Bezet) 435 ms [facility] Calculated R [place] -11 degrees [facility] Calculated T [place] 39 degrees [facility] Interpretation EKG Sinus rhythm with 1st degree A-V block Otherwise normal ECG Confirmed by SAL VELARDE MD ([id number]) on 11/08/2024 8:16:26 PM [facility] 11/08/2024 10:5 3 AM CDT 11/08/2024 8:16 PM CDT Tracy Kerns DO ECG ORDERABLES Edited Result - Final [facility] * (ABNORMAL) COMPREHENSIVE METABOLIC PANEL (11/08/2024 10:27 AM CDT) Glucose 111(H) 70 - 99 mg/dL 11/08/2024 11:07 AM CDT [facility] Sodium 141 136 - 145 mmol/L 11/08/2024 11:07 AM CDT [facility] Potassium 3.8 3.5 - 5.1 mmol/L 11/08/2024 11:07 AM CDT [facility] Chloride 108(H) 98 - 107 mmol/L 11/08/2024 11:07 AM CDT [facility] CO2 26 22 - 29 mmol/L 11/08/2024 11:07 AM CDT [facility] Calcium 9.5 8.4 - 10.4 mg/dL 11/08/2024 11:07 AM CDT [facility] Anion Gap 7 6 - 16 mmol/L 11/08/2024 11:07 AM CDT [facility] BUN 22 7 - 26 mg/dL 11/08/2024 11:07 AM CDT [facility] Creatinine 0.85 0.72 - 1.25 [...] 11/08/2024 10:43 AM CDT us Kathy Jones [employer] MANAGER-ORGANISATIONAL PSYCHOLOGIST LAB - CHEMISTRY ORDERABL ES Final Result [facility] [address] [place] [id number] from Last 3 Months Insurance [facility] MEDICARE MEDICARE [facility] [place] [place] [address] [place] [address] Care Teams Ticket Dispenser Changer Relationship Specialty Start Date End Date Tommy Mendoza DO [address] [place] [address] PCP - General 09/22/19 [place] [address] [place] [address] Orthopedic Surgery 07/05/14
--- OUTSIDE RECORDS SUMMARY | 2025-01-06 00:28 | XMS_ITS | Referral Summary ---
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 Gender Identity Not on file Sexual Orientation [...] on file Medical Devices Implanted Type Area Transplanter Orchid Device Identifier Shelf Expiration Date Model / Serial / Lot Hip Left: Hip [employer] Attune Fb Tib Base Sz 10 Por [id number] - [id number] Implanted:Qty: 1 on 11/13/2022 by Jero Johnson MD at [facility] Right: Knee [employer] Inc [id number] 08/19/2032 [id number] / / [id number] [employer] Attune Cruciate Retain Cementless Knee Right 10 Component Femoral [id number] - [id number] Implanted:Qty: 1 on 11/13/2022 by Jero Johnson MD at [facility] Right: Knee [employer] Inc [id number] 04/18/2032 [id number] / / [id number] [employer] Insert Tibial Knee Fixed Rm Posterior Stabilized Attune 5mm Size 10 Polyethylene [id number] - [id number] Implanted:Qty: 1 on 11/13/2022 by Jero Johnson MD at [facility] Right: Knee [employer] [id number] 09/16/2030 [id number] / / [id number] Insurance MEDICARE [facility] MEDICARE [employer] [facility] Advance Directives For more information, please contact: [phone] * Full Code (Latest Code Status on File) Date Activated Date Inactivated Comments 11/13/2022 4:56 PM 11/14/2022 3:24 PM Care Teams Front Desk Associate Relationship Specialty Start Date End Date Tommy Mendoza DO [address] [place] [address] PCP - General Family Medicine 12/19/21
--- OUTSIDE RECORDS SUMMARY | 2025-01-06 00:28 | XMS_ITS | Encounter Summary ---
Author Organization [facility] Address [address] [facility] [place] [address] Care Team Providers Care Caster Helper Name Role Phone Pcp, Unknown Primary Care Provider Unavailabl Gabbi Barbour MD Unavailable [phone] Tommy Mendoza DO Primary Care Provider + Encounter Details Date Type Department Care Team (Late st Contact Info) Description 10/17/2010 [facility] Outpatient Visit [facility] DEPT Amor Shaffer MD [address] [place] [address] Social History Tobacco Use Types Packs/Day Years Used Date Smoking Tobacco: Former Cigarettes Q uit: 09/25/2008 Cigars Smokeless Tobacco: Never Alcohol Use Standard Drinks/Week Comments Yes 1.7 (1 standard drink = 0.6 oz p ure alcohol) rarely Sex and Gender Information Value Date Recorded Sex Assigned at Not on file 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 Gender Identity Not on file Sexual Orientation Not on file 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 on file Not on file documented as of this encounter Plan of Treatment Upcoming Encounters Date Type Department Care Team (Late Contact Info) Description 01/18/2025 9:45 AM CDT Office Visit [facility] Orthoped[facility] [address] [facility], [address] [place] [phone] Shirley Wisdom PAWolf [address] [facility] [address] [place], [place] [phone] documented as of this encounter Visit Diagnoses Not on filedocumented in this encounter Care Teams Caster Helper Relationship Specialty Start Date End Date Pcp, Unknown [place] [address] PCP - General 07/05/09 Tommy Mendoza DO [address] [place] [address] PCP - General 09/22/19 [place] [address] [facility] [address] [place] [address] Orthopedic Surgery 07/05/14 documented as of this encounter
--- OUTSIDE RECORDS SUMMARY | 2025-01-06 00:28 | XMS_ITS | Encounter Summary ---
Author Organization [facility] Address [address] [facility] [place] [address] Care Team Providers Care Certified Ski Patroller Name Role Phone Gabbi Claudio MD Unavailable [phone] Tommy Mendoza DO Primary Care Provider + Encounter Details Date Type Department Care Team (Late st Contact Info) Description 11/26/2023 Lab Requisition [facility] - DermPath Lab [address] [facility], [place] [address] Mariluz Chinchilla MD [address] [facility] [address] [place] [address] Social History Tobacco Use Types Packs/Day Years Used Date Smoking Tobacco: Former Cigarettes Q uit: 09/25/2008 Cigars Smokeless Tobacco: Never Alcohol Use Standard Drinks/Week Comments Yes 1.7 (1 standard drink = 0.6 oz p ure alcohol) rarely Sex and Gender Information Value Date Recorded Sex Assigned at Not on file 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 Orthopedics [address] [phone] Shirley Wisdom PA-C [address] [address] documented as of this encounter Procedures Procedure Name Priority Date/Time Associated Diagnosis Comments DERMATOPATHOLOGY Routine 11/26/2023 1:45 PM CDT documented in this encounter Results * DERMATOPATHOLOGY (11/26/2023 1:45 PM CDT) Case Report Dermatopathology Report Case: [id number] Authorizing Provider: Mariluz Chinchilla MD Collected: 11/26/2023 01:45 PM Ordering Location: [facility] - Received: 11/30/2023 06:44 AM [...] characteristic determined by the Dermatopathology Laboratory at [facility], directed by Dr. Marika Meza. These tests need not be, and therefore are not, approved by the [place] Food and Drug Administration. The tests are used for clinical purposes. Billing Codes Specimen Charges Stain Charges 35575 1 1:36 PM CDT [facility] LAB[facility] Embedded Images 1:36 PM CDT DERMATOPATHOLOGY LABORATORY Pathology/Cytolo gy TISSUE SPECIMEN FROM SKIN / Unknown 11/26/2023 1:45 PM CDT 11/30/2023 6:44 AM CDT us Mariluz Chinchilla MD LAB - PATHOLOGY/CYTOLOGY ORD ERABLES Final Result DERMATOPATHOLOGY LABORATORY [facility] - Department of Dermatology [address], [address] [phone] documented in this encounter Visit Diagnoses Not on filedocumented in this encounter Care Teams Certified Ski Patroller Relationship Specialty Start Date End Date Tommy Mendoza DO [address] [place] [address] PCP - General 09/22/19 [place] [address] [place] [phone] Orthopedic Surgery 07/05/14 documented as of this encounter
--- OUTSIDE RECORDS SUMMARY | 2025-01-06 00:28 | XMS_ITS | Encounter Summary ---
Author Organization [facility] Address [address] [facility] [place] [address] Care Team Providers Care Extraction Operator Name Role Phone Pcp, Unknown Primary Care Provider Unavailabl Gabbi Barbour MD Unavailable [phone] Tommy Mendoza DO Primary Care Provider + Encounter Details Date Type Department Care Team (Late st Contact Info) Description 09/24/2010 [facility] Outpatient Visit EXTERNAL NON-[facility] DEPT Amor hSaffer MD [address] [place] [address] Social History Tobacco Use Types Packs/Day Years Used Date Smoking Tobacco: Former Cigarettes Q uit: 09/25/2008 Cigars Smokeless Tobacco: Never Alcohol Use Standard Drinks/Week Comments Yes 1.7 (1 standard drink = 0.6 oz p ure alcohol) rarely Sex and Gender Information Value Date Recorded Sex Assigned at Not on file 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 Gender Identity Not on file Sexual Orientation Not on file 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 on file Not on file documented as of this encounter Plan of Treatment Upcoming Encounters Date Type Department Care Team (Late Contact Info) Description 01/18/2025 9:45 AM CDT Office Visit [facility] Health Orthopedics [address] [facility], [address] [place] [phone] Shirley Wisdom PAWolf [address] [facility] [address] [place], [place] [phone] documented as of this encounter Visit Diagnoses Not on filedocumented in this encounter Care Teams Extraction Operator Relationship Specialty Start Date End Date Pcp, Unknown [place] [address] PCP - General 07/05/09 Tommy Mendoza DO [address] [place] [address] PCP - General 09/22/19 [place] [address] [facility] [address] [place] [address] Orthopedic Surgery 07/05/14 documented as of this encounter
[2025-01-06 11:15] VITALS: BP 130/73; PULSE 57; RESP 14; TEMP 37.3; O2SAT 95; BMI 38.9
--- NOTE | 2025-01-06 11:33 | WPDHPUPDATE1 ---
History and Physical Update Update Date/Time: 01/06/25 11:33 History and Physical has been reviewed, including an updated exam of the patient. There are NO changes in the patient's condition. Risks, benefits, and alternatives have been discussed and questions answered. Patient agrees to proceed with procedure. Proceed with cystoscopy, left retrograde, left ureteroscopy with laser, stent placement
--- NOTE | 2025-01-06 11:39 | P.PNAN_ITS ---
Anes - Initial Pre Proc Eval Procedure: Operation Date: 01/06/25 13:30 Proposed Procedures p Cystoscopy, Left Ureteroscopy, Left Retrograde Pyelogram, Holmium Laser Lithotripsy, Left Stone Extraction, Left Stent Placement - Marco Antonio Samayoa MD Date/Time: 01/06/25 11:39 Surgeon: Marco Antonio Samayoa MD Pre Op Diagnosis: Lt Ureteral Stone Patient Data Age: 64 Gender: M Height: 1.88 m Weight: 140 kg Allergies Allergy/AdvReac Type Severity Reaction Status Date / Time Penicillins Allergy Severe Swelling Verified 01/04/25 11:21 of Lip/Tongue/Throat Home Medications ?Medication ?Instructions ?Recorded ?Confirmed ?Type ondansetron 4 mg disintegrating 4 mg PO Q8H PRN nausea and 01/02/25 01/04/25 Rx tablet vomiting #15 tabs oxycodone 5 mg tablet 5 mg PO Q6H PRN pain #15 tabs 01/02/25 01/04/25 Rx tamsulosin 0.4 mg capsule (Flomax) 0.4 mg PO DAILY #7 caps 01/02/25 01/04/25 Rx amlodipine 5 mg tablet 5 mg PO DAILY 01/04/25 01/04/25 History atenolol 50 mg tablet 50 mg PO DAILY 01/04/25 01/04/25 History atorvastatin 10 mg tablet 10 mg PO QPM 01/04/25 01/04/25 History cholecalciferol (vitamin D3) 10 10 mcg PO DAILY 01/04/25 01/04/25 History mcg (400 unit) capsule dextroamphetamine-amphetamine ER 10 mg PO DAILY 01/04/25 01/04/25 History 10 mg 24hr capsule,extend release omeprazole 40 mg capsule,delayed 40 mg PO .Day 01/04/25 01/04/25 History release valsartan 320 1 tablet PO DAILY 01/04/25 01/04/25 History mg-hydrochlorothiazide 25 mg tablet Patient hx anesthesia problems: none Family hx anesthesia problems: none Results Review: All pre-operative results and documents have been reviewed as part of the pre- operative evaluation. [facility] Social History Social History Smoking packs per day: 1 Smoking cigarettes per day: 20.0 Years smoked: 25 Smoking pack-years: 25.00 Smoking status: Former smoker Tobacco type: cigarettes Smoking end date: 07/20/07 Alcohol intake: current Drinks per week: 3 Substance use: former Living arrangements: with family Additional living arrangements comments: Spiritual care concerns: No Anes - Eval Final PreProcedure Day of Procedure 01/06/25 11:39 Patient weight: obese Heart: regular rate and rhythm Lungs: clear to auscultation Airway: Mallampati scale class II Neurological: alert and oriented Last oral intake: >/= 8 hours ASA classification: III Emergent: no Anesthetic plan: proceed Anesthesia type and monitoring: general LMA and standard monitoring Results Review: All pre-operative results and documents have been reviewed as part of the pre- operative evaluation. Informed Consent: The patient's anesthetic plan and its attendant risks and benefits were discussed with the patient/family/POA. Questions were solicited and answers provided to the satisfaction of the patient/family/POA.
[2025-01-06] MEDS: ceFAZolin 3 GM/D5W 100 ML 100 ML IVPB (13:50)
[2025-01-06] MEDS: LIDOCAINE 2% GEL UROJET 10 ML PKG MUCOUS MEM (14:08)
--- NOTE | 2025-01-06 14:44 | S_PTH ---
PATIENT: Alexsander Kwan LOC: [facility] U#:[id number] AGE/SX: 64/M ROOM: RE01/06/[address]: Marco Antonio Samayoa, : 1960 BED: DIS: 01/06/2025 SPEC #: [id number] RECD: 01/09/25 08:00 STATUS: ED RELuke #: [id number] VANESA: 01/06/25 14:[address]: Yao,Marco Antonio Mar DEPT: [facility] Surgical RECD BY: Kinga Szymanski ENTERED: 01/09/25 08:00 SP TYPE: Surgical OTHR DR: Tommy Mendoza, DO Tissues: A - Stone B - Stone Procedures: Gross Exam Level 1 Crystalline Analysis
--- NOTE | 2025-01-06 14:52 | W.PM.PROC2 ---
Procedure Note - Detailed Date of Procedure 01/06/25 Pre-op Diagnosis Lt Ureteral Stone 1.8 cm Post-op Diagnosis Same (In addition has a 1 cm stone attached to a UroLift staple at bladder neck 9 o'clock position) Procedure Performed Cystoscopy, left retrograde, left ureteroscopy with holmium laser, stone extraction, left ureteral stent placement 4.8 [place] contour, laser of stone/bladder stone on UroLift staple Surgeon Marco Antonio Samayoa MD Anesthesia General Description of Procedure Patient was taken to the operative suite correctly identified. Once anesthesia was obtained was placed in dorsal lithotomy position and prepped and draped usual sterile fashion. Twenty-two [place] scope was inserted in the bladder direct vision. The prostate was not overly obstructive. It was noted that he had a stone attached at the bladder neck at approximately 9 to 10 o'clock position. This was attached to a UroLift staple. The bladder itself had no tumors. The left ureteral orifice was cannulated with a guidewire. Ureteral access sheath was placed. Flexible ureteral scope was inserted the stone was visualized. Using a 200 micron fiber we lasered the stone the larger pieces were sent for analysis. Pyelogram was then performed to confirm placement of the stent. 4.8 [place] contour stent was then placed with the proximal end coiled in the renal pelvis and the distal in the bladder. I then went ahead and lasered the stone attached to the staple. As he was not consented for any resection of the prostate we did not proceed any further. Bladder was drained. 2% viscous lidocaine was inserted into the urethra. Patient was taken recovery stable condition. I will discuss management of the UroLift staple as it may require resection in the future. This completes dictation. Please send a copy of op note to my office Estimated Blood Loss 0 Drains Yes Packing No Pathology Yes Complications No immediate complications Condition Stable Disposition PACU
[2025-01-06 14:57] VITALS: BP 109/60; PULSE 67; RESP 18; TEMP 36.9; O2SAT 97
[2025-01-06] MEDS: LACTATED RINGERS 1,000 ML 30 ML IV CONT (14:57)
[2025-01-06 15:10] VITALS: BP 108/61; PULSE 63; RESP 18; O2SAT 97
[2025-01-06 15:25] VITALS: BP 128/74; PULSE 67; RESP 14; O2SAT 97
[2025-01-06 15:33] VITALS: BP 117/89; PULSE 68; RESP 16; O2SAT 95
[2025-01-06 15:37] VITALS: BP 133/79; PULSE 65; RESP 16; O2SAT 93
[2025-01-06] MEDS: oxyCODONE HCL (*CRX) 5 MG TAB IR PO (15:50)
== END 2025-01-06 16:08 | disposition home or self-care (01) ==
PROVIDERS: PCP Student in an Organized Health Care Education/Training Program; Visit Provider Urology
PROC: (CPT 52352; principal; 2025-01-06 13:30)
DX: N20.1 Calculus of ureter (principal); N32.81 Overactive bladder; N39.41 Urge incontinence; F12.90 Cannabis use, unspecified, uncomplicated; E66.9 Obesity, unspecified; Z68.38 Body mass index [BMI] 38.0-38.9, adult; Z79.1 Long term (current) use of non-steroidal anti-inflammatories (NSAID); Z79.891 Long term (current) use of opiate analgesic; Z98.890 Other specified postprocedural states; Z87.891 Personal history of nicotine dependence; Z80.3 Family history of malignant neoplasm of breast; Z80.0 Family history of malignant neoplasm of digestive organs; Z82.49 Family history of ischemic heart disease and other diseases of the circulatory system
CPT/HCPCS: 52356; 74420; 82365; 88300; A9270; C1769; C1894; C2617; J0690; J2003; J2250; J2405; J2704; J3010; J7120; Q9966